=== PATIENT | male | born 1945 | race Caucasian/White ===

== ENCOUNTER → 2020-04-06 12:52 | Outpatient (BNVA) | payer MEDICARE, SELFPAY | PROVIDERS: PCP Internal Medicine; Visit Provider Internal Medicine Cardiovascular Disease | DX: R55 Syncope and collapse (principal) | CPT/HCPCS: 93005; 99212 ==

== ENCOUNTER 2020-07-31 09:26 | Outpatient (REF) | payer MEDICARE, SELFPAY ==
[2020-07-31 10:30] LABS: Hematocrit 44.5 % (42-52); Hemoglobin 14.6 g/dl (14.0-18.0); Mean Corpuscular HGB Conc 32.8 g/dl (31.0-36.0); Mean Corpuscular Hemoglobin 30.6 pg (27.0-33.0); Mean Corpuscular Volume 93.3 fL (80-98); Mean Platelet Volume 10.1 fL (9.4-12.4); Platelet Count 253 X10*3/uL (160-400); Red Blood Count 4.77 X10*6/uL (4.60-5.80); Red Cell Distribution Width 12.8 % (11.0-16.0); White Blood Count 5.1 X10*3/uL (4.8-10.8)
[2020-07-31 10:57] LABS: Alanine Aminotransferase 20 U/L (0-40); Albumin Level 4.2 g/dL (3.5-5.0); Alkaline Phosphatase 73 U/L (39-117); Anion Gap 12 (12-20); Aspartate Amino Transferase 17 U/L (5-37); Bilirubin Direct 0.2 mg/dL (0.0-0.5); Bilirubin Total 0.8 mg/dL (0.0-1.0); Blood Urea Nitrogen 24 mg/dL (9-16); Calcium 9.3 mg/dL (8.4-10.2); Carbon Dioxide 28 mmol/L (22-29); Chloride 108 mmol/L (96-108); Cholesterol 154 mg/dL; Estimated Glomerular Filt Rate > 60; Glucose Random 115 mg/dL (60-115); HDL Cholesterol 37 mg/dL; LDL Cholesterol Calculated 82 mg/dl; Potassium 4.4 mmol/L (3.3-5.1); Sodium 144 mmol/L (135-145); Total Protein 6.6 g/dL (6.5-8.0); Triglycerides 179 mg/dL
[2020-07-31 11:22] LABS: Glucose Urine UA NEG (NEG); Leukocyte Esterase Urine NEG (NEG); Nitrite Urine NEG (NEG); Urine Blood NEG (NEG); Urine Ketones NEG (NEG); Urine Protein NEG (NEG-TRACE)
[2020-07-31 11:24] LABS: Appearance Urine CLEAR; Color Urine YELLOW
== END 2020-07-31 09:27 | disposition home or self-care (01) ==
LOC: HO.LAB 09:26
PROVIDERS: PCP Internal Medicine; Visit Provider Internal Medicine
DX: E78.00 Pure hypercholesterolemia, unspecified (principal); I10 Essential (primary) hypertension
CPT/HCPCS: 36415; 80048; 80061; 80076; 81003; 85027; 86140

== ENCOUNTER 2020-10-31 09:48 | Outpatient (REF) | payer MEDICARE, SELFPAY ==
--- NOTE | ~2020-10-31 | XR_ITS ---
EXAMINATION: XR SHOULDER, RIGHT CLINICAL INFORMATION: R47.1 - Dysarthria and anarthria. Shoulder pain COMPARISON: Radiographs right shoulder 12/23/2018 TECHNIQUE: The right shoulder is imaged in 4 views. FINDINGS: There is no fracture, dislocation, or destructive process. Again, prominent narrowing of the glenohumeral joint is present with subchondral sclerosis and bulky spur from the inferior medial humeral head. There is no visible erosive change. Calcific tendinosis distal superior rotator cuff noted on prior study is not seen with certainty on the current exam. The acromioclavicular joint again demonstrates widening with stable mild elevation distal clavicle. Findings suggest old grade 1 sprain. The right lung apex shows no pneumothorax or pleural reaction. XR/XR shoulder RT min 2V IMPRESSION: 1. Degenerative arthropathy glenohumeral joint similar to prior study 12/23/2018. 2. Chronic grade 1 sprain acromioclavicular joint, stable.
== END 2020-10-31 09:49 | disposition home or self-care (01) ==
LOC: HO.XRAY 09:48
PROVIDERS: PCP Internal Medicine; Visit Provider Internal Medicine
DX: R47.1 Dysarthria and anarthria (principal); M75.00 Adhesive capsulitis of unspecified shoulder
CPT/HCPCS: 73030

== ENCOUNTER → 2020-11-07 09:21 | Outpatient (BNVA) | payer MEDICARE, SELFPAY | PROVIDERS: PCP Internal Medicine; Visit Provider Orthopaedic Surgery | DX: M19.011 Primary osteoarthritis, right shoulder (principal) | CPT/HCPCS: 20610; 99212; J1040 ==

== ENCOUNTER 2020-11-20 08:20 | Outpatient (REF) | payer MEDICARE, SELFPAY ==
[2020-11-20 09:38] LABS: Alanine Aminotransferase 45 U/L (0-40); Albumin Level 4.4 g/dL (3.5-5.0); Alkaline Phosphatase 64 U/L (39-117); Anion Gap 12 (12-20); Aspartate Amino Transferase 23 U/L (5-37); Blood Urea Nitrogen 23 mg/dL (9-16); Calcium 9.5 mg/dL (8.4-10.2); Carbon Dioxide 26 mmol/L (22-29); Chloride 108 mmol/L (96-108); Estimated Glomerular Filt Rate > 60; Glucose Fasting 94 mg/dL (60-99); Potassium 4.3 mmol/L (3.3-5.1); Sodium 142 mmol/L (135-145); Total Protein 6.7 g/dL (6.5-8.0)
== END 2020-11-20 08:21 | disposition home or self-care (01) ==
LOC: HO.LAB 08:20
PROVIDERS: PCP Internal Medicine; Visit Provider Nurse Practitioner Family
DX: Z13.1 Encounter for screening for diabetes mellitus (principal)
CPT/HCPCS: 36415; 80053

== ENCOUNTER 2021-02-05 12:06 | Outpatient (REF) | payer MEDICARE, SELFPAY ==
[2021-02-05 13:41] LABS: Alanine Aminotransferase 40 U/L (0-40); Albumin Level 4.5 g/dL (3.5-5.0); Alkaline Phosphatase 76 U/L (39-117); Anion Gap 14 (12-20); Aspartate Amino Transferase 31 U/L (5-37); Bilirubin Total 0.9 mg/dL (0.0-1.0); Blood Urea Nitrogen 20 mg/dL (9-16); Calcium 9.8 mg/dL (8.4-10.2); Carbon Dioxide 27 mmol/L (22-29); Chloride 105 mmol/L (96-108); Estimated Glomerular Filt Rate > 60; Glucose Random 91 mg/dL (60-115); Potassium 4.9 mmol/L (3.3-5.1); Sodium 141 mmol/L (135-145); Total Protein 7.2 g/dL (6.5-8.0)
[2021-02-07 08:53] LABS: HBS Num1 0.05 mIU/mL (0-7.99); HBc Num1 0.06 S/CO (0.00-0.79); Hepatitis B Core Antibody Nonreactive (Nonreactive); ~Hepatitis B Surface Antibody NONREACTIVE (Nonreactive)
[2021-02-07 09:10] LABS: HBsAGNum1 0.14 S/CO (0.00-0.99); Hepatitis B Surface Antigen Negative (Negative); ~HepC Num1 0.08 S/CO (0.00-0.79); ~Hepatitis C Antibody Nonreactive (Nonreactive)
== END 2021-02-05 12:07 | disposition home or self-care (01) ==
LOC: HO.LAB 12:06
PROVIDERS: PCP Internal Medicine; Visit Provider Internal Medicine
DX: R79.89 Other specified abnormal findings of blood chemistry (principal); R94.5 Abnormal results of liver function studies
CPT/HCPCS: 36415; 80053; 86704; 86706; 86803; 87340

== ENCOUNTER 2021-03-13 08:27 | Outpatient (REF) | payer MEDICARE, SELFPAY ==
--- NOTE | ~2021-03-13 | US_ITS ---
EXAMINATION: US ABDOMEN COMPLETE CLINICAL INFORMATION: Other specified abnormal findings of blood chemistry. COMPARISON: CT abdomen and pelvis without contrast dated 02/24/2010. TECHNIQUE: Real-time imaging of the abdominal viscera. FINDINGS: PANCREAS: Not well visualized due to bowel gas ABDOMINAL AORTA: Not well visualized due to bowel gas INFERIOR VENA CAVA: Visualized portions are normal. LIVER: Normal. The liver is normal in size. The liver contour is normal. Parenchymal echogenicity is normal. No focal hepatic lesion. There is no intrahepatic biliary duct dilatation seen. GALLBLADDER: Normal. The gallbladder is physiologically distended without evidence of stones, polyps, wall thickening or pericholecystic fluid. COMMON BILE DUCT: Normal in caliber measuring 0.4 cm in diameter. RIGHT KIDNEY: Normal. No hydronephrosis. No renal calculi or focal parenchymal lesions. The kidney measures 9.0 cm in maximum dimension. LEFT KIDNEY: Normal. No hydronephrosis. No renal calculi or focal parenchymal lesions. The kidney measures 11.3 cm in maximum dimension. SPLEEN: Normal. The spleen measures 9.6 cm in maximum dimension. FREE FLUID: None. US/US abdomen complete IMPRESSION: Limited visualization of the pancreas and aorta. Otherwise unremarkable exam.
== END 2021-03-13 08:28 | disposition home or self-care (01) ==
LOC: HO.US 08:27
PROVIDERS: PCP Internal Medicine; Visit Provider Internal Medicine
DX: R79.89 Other specified abnormal findings of blood chemistry (principal); R94.5 Abnormal results of liver function studies
CPT/HCPCS: 76700

== ENCOUNTER → 2021-04-09 12:42 | Outpatient (BNVA) | payer MEDICARE, SELFPAY | PROVIDERS: PCP Internal Medicine; Referring Provider Internal Medicine; Visit Provider Internal Medicine Cardiovascular Disease | DX: R55 Syncope and collapse (principal) | CPT/HCPCS: 93005; 99212 ==

== ENCOUNTER 2021-07-10 12:47 | Outpatient (RCR) | payer MEDICARE, SELFPAY ==
--- NOTE | 2021-07-23 11:36 | MHC.SP.ADU ---
Referring provider: Dr. Alex Reason for Referral: Dysarthria Type of Treatment: 67823 Evaluation Speech Sound Production WITH Language Date of Plan of Treatment: 07/10/21 Onset of Symptoms/Illness: 07/11/19 Date Treatment Started: 07/10/21 Medical Diagnosis: Dysarthria. Mr. Rosales reports no known HX CVA or neurological event. 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 Primary Speech Language Diagnosis: R47.1 Dysarthria Secondary Speech Language Diagnosis: R48.2 Apraxia History Eyad Rosales is a 75 year old man, [place] , who presented at the clinic today with a complaint of speech difficulty. Mr. Rosales reports that he had difficulty speaking clearly if saying more than two to three words in connected speech. He reports that he may stutter, have difficulty initiating words, and his speech is slurred/distorted and difficult for others to understand. He said speech has been this way for two years, and denies having had a stroke or stroke symptoms (other than slurred speech) when difficulty began. Mr. Rosales has not had neurological assessment or imaging studies to date for this difficulty, however has been referred to a neurologist by his new PCP. Medical History: Arthritis High Blood Pressure Other: Mr. Rosales reports he was diagnosed w/benign brain tumor 4-5 years ago. Medication List: Please refer to chart Recent Hospitalizations: No Respiratory Needs: Room Air Patient Orientation: Alert & Oriented x 4 Social History: Employment Status: Retired Highest level of education obtained: Completed High School Current Living Situation: Mr. 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 Rosales presents w/ moderate Dysarthria v. Adult Acquired Apraxia of Speech, characterized by speech sound distortions, omissions of sounds, syllables and words at sentence/connected speech level. Speech is moderately unintelligible to unfamiliar listener. Quality of Life: Good Patient Stated Goal of Speech-Language Therapy: Assess Speech and Language, make recommendations for intervention. Assessment Speech Production: Dysarthric Nonfluent Paucity of language Slurred Clinical Impression: Impaired Observations: Mr. Rosales presents with moderately impaired speech production characterized by distortion of speech sounds (including vowels) and omission of sounds, syllables and whole words at level of connected speech/sentence level. At single word level, Mr. Rosales is able to produce all [place] speech sounds w/o distortions, errors or production difficulty. Mr. Rosales additionally was noted stutter on sounds, characterized by occasional blocking when initiating words, and occasional repetition of initial sound in word. Mr. Rosales's Diodochokinetic rate demonstrated highly irregular rhythm, w/ decay/distortion of sounds on rapid repetition. When attempting to speak more than two to three words, Mr. Mancilla speech is moderately difficult to understand, particularly to an unfamiliar listener. Speech behavior noted is consistent with Adult Acquired Apraxia of Speech v. primary Dysarthria. Mr. Rosales noted that he participates in his [employer], and reports that he is able to sing and produce clear speech when singing. Informal Voice Assessment: Voice Loudness: Normal Voice Nasal Resonance: Normal Voice Oral Resonance: Normal Voice Phonatory-based Quality: Normal Voice Pitch: Normal Clinical Impression: Intact Clinicial Observations: On CAPE-V, vocal production is within normal limits, and speech production impaired as per above. Tests of Speech & Lang Adults: WAB-R Clinical Impression: Intact Observations: On screening of language skills using the Western Aphasia Battery R, Mr. Cornell presents with receptive and expressive language skills WNL, with no evidence of aphasia, auditory processing or auditory memory weakness. Impressions and Recommendations Summary: Impact on Daily Function/Activity Limitations:Mild-Moderate Daily Activities: Mild Interpersonal Interactions: Moderate Employment: Mild Community: Moderate Prognosis for Improvement: Good Comment: To date, Mr. Rosales has not received intervention for his speech needs. He made the observation that when he slows his speech and keeps his message to two to three words, he is best able to produce clear speech. As his utterance length or level of complexity of expression increases, the greater difficulty he has producing speech. Mr. Rosales may benefit from speech therapy focused on pacing and production strategies. Recommendation for Speech Therapy: Outpatient Speech Therapy Frequency/Duration: 1X 45 minute outpatient speech session weekly, w/ weekly home carryover activities assigned. Date Range for Service Requested: 1-3 months Time to Reassess: 3 months Detention Goals: Increase intelligibility of speech by providing strategies for speech production and articulation at the phrase, sentence and contextual speech level. Short Term Goals: Goal # : Eyad will accurately produce multisyllabic words in phrases by using a pacing strategy with 80% accuracy. Goal Status: Goal# : Eyad will produce target vowel and consonant sounds in words at the phrase and sentence level with 80% accuracy Goal Status: Goal # : Using a fluency strategy (e.g. easy onset, backward chaining), Eyad will produce fluent speech at the phrase level with 80% accuracy Goal Status: Goal # : In a structured activity, Eyad will produce a short verbal narrative with sentence length utterances of at least six morphemes in length with 80% accuracy. Goal Status: Recommended Referrals to be Discussed with Primary Care Provider: Mr. Cornell reports that he is schedule to be assessed by a Neurologist. Patient Education: Completed: Yes Patient/Caregiver Education: Described Results of Evaluation Patient expressed understanding of evaluation Comments/Barriers to Learning: Multi Line Claims Adjuster Clinican/Clinical Fellow: No Supervisory Statement: N/A Speech Language Pathologist: Valorie Sanders M.A., CCC-AMBULANCE ATTENDANT
== END 2022-01-08 13:15 | disposition still patient (30) ==
LOC: HO.SH 12:47
PROVIDERS: Visit Provider Internal Medicine
DX: R47.1 Dysarthria and anarthria (principal)
CPT/HCPCS: 92523

== ENCOUNTER 2021-10-01 08:48 | Outpatient (REF) | payer MEDICARE, SELFPAY ==
[2021-10-01 09:02] LABS: MANUAL DIFF FLAG NO
[2021-10-01 09:06] LABS: Basophils Percent Auto 0.5 % (0-2); Eosinophils Absolute Auto 0.2 X10*3/uL (0.0-0.4); Eosinophils Percent Auto 4.4 % (0-4); Hematocrit 44.6 % (42.0-52.0); Hemoglobin 14.9 g/dl (14.0-18.0); Imm Gran Abs Auto 0.02 X10*3/uL (0.00-0.03); Imm Gran Pct Auto 0.4 % (0.0-0.4); Lymphocytes Absolute Auto 1.4 X10*3/uL (1.2-4.9); Lymphocytes Percent Auto 25.1 % (20-40); Mean Corpuscular HGB Conc 33.4 g/dl (31.0-36.0); Mean Corpuscular Hemoglobin 30.7 pg (27.0-33.0); Mean Platelet Volume 9.5 fL (9.4-12.4); Monocytes Absolute Auto 0.6 X10*3/uL (0.1-1.2); Monocytes Percent Auto 11.3 % (2-11); Neutrophils Absolute Auto 3.2 x10*3/uL (2.0-8.3); Neutrophils Percent Auto 58.3 % (45-73); Platelet Count 236 X10*3/uL (160-400); Red Blood Count 4.85 X10*6/uL (4.60-5.80); Red Cell Distribution Width 12.6 % (11.0-16.0); White Blood Count 5.5 X10*3/uL (4.8-10.8)
[2021-10-01 09:46] LABS: Alanine Aminotransferase 38 U/L (0-40); Albumin Level 4.4 g/dL (3.5-5.0); Alkaline Phosphatase 67 U/L (39-117); Anion Gap 12 (12-20); Aspartate Amino Transferase 25 U/L (5-37); Blood Urea Nitrogen 21 mg/dL (9-16); Calcium 9.5 mg/dL (8.4-10.2); Carbon Dioxide 26 mmol/L (22-29); Chloride 106 mmol/L (96-108); Cholesterol 173 mg/dL; Estimated Glomerular Filt Rate > 60; Glucose Random 99 mg/dL (60-115); HDL Cholesterol 40 mg/dL; LDL Cholesterol Calculated 100 mg/dl; Potassium 4.4 mmol/L (3.3-5.1); Sodium 140 mmol/L (135-145); Total Protein 6.9 g/dL (6.5-8.0); Triglycerides 167 mg/dL
[2021-10-01 10:08] LABS: Free T4 (Free Thyroxine) 0.91 ng/dL (0.71-1.85)
[2021-10-01 11:39] LABS: Folate > 20.0 ng/mL (> or = 4.0); Vitamin B12 769 pg/mL (200-900)
== END 2021-10-01 08:49 | disposition home or self-care (01) ==
LOC: HO.LAB 08:48
PROVIDERS: PCP Internal Medicine; Visit Provider Internal Medicine
DX: E78.00 Pure hypercholesterolemia, unspecified (principal)
CPT/HCPCS: 36415; 80053; 80061; 82607; 82746; 84439; 84443; 85025

== ENCOUNTER 2021-10-10 11:14 | Outpatient (REF) | payer MEDICARE, SELFPAY ==
--- NOTE | ~2021-10-10 | MR_ITS ---
MR CERVICAL SPINE WITHOUT CONTRAST CLINICAL INFORMATION: Cervical region spinal stenosis. COMPARISON: Cervical spine MRI 03/13/2019. TECHNIQUE: MRI of the cervical spine was obtained using routine sequences without contrast. FINDINGS: Reversal the cervical lordosis. Mild anterior subluxation of C2 on C3 is unchanged as is mild retrosubluxation of C3 on C4, C5 on C6, and C6 on C7. There is also stable mild anterior subluxation of C7 on T1. Similar severe disc volume loss at C4-C5, C5-C6, and C6-C7. Modic type II endplate signal changes at C4-C5 and Modic type I signal changes at C3-C4. There is no additional bone marrow edema. There are no acute fractures. A partially imaged cyst within the left temporal lobe is stable when compared to the brain MRI dated 04/21/2018. Craniocervical junction is unremarkable. No definite cord signal abnormality accounting for artifact. The cervical arterial flow voids are maintained. C2-C3: Mild anterior subluxation. Advanced uncovertebral joint hypertrophy and hypertrophic facet arthropathy result in severe left and moderate right foraminal stenosis. Mild central canal stenosis. Findings unchanged. C3-C4: Disc osteophyte and ligamentum flavum thickening result in stable mild central canal stenosis. Advanced uncovertebral joint hypertrophy and hypertrophic facet arthropathy result in stable severe bilateral foraminal stenosis. C4-C5: Disc osteophyte and ligamentum flavum thickening result in mild to moderate central canal stenosis that is improved. Advanced uncovertebral joint hypertrophy and hypertrophic facet arthropathy result in stable severe right and moderate to severe left foraminal stenosis. C5-C6: Disc osteophyte and ligamentum flavum thickening result in stable moderate central canal stenosis and flattening of the cord. Advanced uncovertebral joint hypertrophy and hypertrophic facet arthropathy result in stable severe bilateral foraminal stenosis. C6-C7: Disc osteophyte and ligamentum flavum thickening result in stable mild central canal stenosis. Advanced uncovertebral joint hypertrophy and hypertrophic facet arthropathy result in stable severe bilateral foraminal stenosis. C7-T1: Mild anterior subluxation. No central canal stenosis and no significant foraminal stenosis. MR/MR cervical spine wo con IMPRESSION: - Reversal of the cervical lordosis, multilevel subluxation, and advanced multilevel cervical spondylosis. At C4-C5, slightly improved spondylitic changes result in decreased now mild to moderate central canal stenosis. Spondylitic changes result in similar moderate central canal stenosis and flattening of the cervical cord at C5-C6. Advanced spondylitic changes also result in stable varying degrees of moderate to severe foraminal stenosis throughout the cervical spine as described. - A partially imaged cyst within the left temporal lobe is stable when compared to the brain MRI dated 04/21/2018.
== END 2021-10-10 11:15 | disposition home or self-care (01) ==
LOC: HO.MRI 11:14
PROVIDERS: Visit Provider Internal Medicine
DX: M48.02 Spinal stenosis, cervical region (principal)
CPT/HCPCS: 72141

== ENCOUNTER → 2021-10-16 09:17 | Outpatient (BNVA) | payer MEDICARE, SELFPAY | PROVIDERS: PCP Internal Medicine; Visit Provider Physician Assistant | DX: M19.011 Primary osteoarthritis, right shoulder (principal) | CPT/HCPCS: 99212 ==

== ENCOUNTER → 2021-11-05 11:10 | Outpatient (BNVA) | payer MEDICARE, SELFPAY | PROVIDERS: PCP Internal Medicine; Visit Provider Orthopaedic Surgery | DX: M19.011 Primary osteoarthritis, right shoulder (principal); Z79.899 Other long term (current) drug therapy | CPT/HCPCS: 99212 ==

== ENCOUNTER → 2021-11-22 11:03 | Outpatient (BNVA) | payer MEDICARE, SELFPAY | PROVIDERS: PCP Internal Medicine; Visit Provider Orthopaedic Surgery | DX: M19.011 Primary osteoarthritis, right shoulder (principal) | CPT/HCPCS: 20610; 99212; J1100 ==

== ENCOUNTER 2022-02-07 13:00 | Outpatient (RCR) | payer MEDICARE, SELFPAY | END 2022-02-11 14:08 | disposition home or self-care (01) | LOC: HO.SH 13:00 | PROVIDERS: Visit Provider Internal Medicine | DX: R47.1 Dysarthria and anarthria (principal) | CPT/HCPCS: 92507 ==

== ENCOUNTER 2022-03-18 14:47 | Outpatient (REF) | payer MEDICARE, SELFPAY ==
--- NOTE | ~2022-03-18 | MR_ITS ---
EXAMINATION: MR BRAIN WITHOUT CONTRAST CLINICAL INFORMATION: Dysarthria following cerebral infarction. COMPARISON: Brain MRI 04/21/2018. TECHNIQUE: Multiplanar, multisequence imaging of the brain was performed without intravenous contrast. FINDINGS: There is no acute infarction, hemorrhage, mass, or extra-axial fluid collection. There is redemonstration of left temporal horn enlargement which is unchanged compared with prior exams with stable mild gliosis along the anterior and lateral margin. A few minimal nonspecific foci of T2/FLAIR hyperintensity are seen within the cerebral white matter. Disproportionate diffuse cerebellar hemisphere and vermian volume loss is again noted without change. The major arterial flow voids are preserved at the skull base. There are bilateral lens replacements. The extracranial structures are within normal limits. MR/MR head/brain wo con IMPRESSION: No acute intracranial abnormality. No infarct, mass, or extra-axial fluid collection. Stable enlargement of the left temporal horn. Redemonstration of disproportionate cerebellar volume loss.
== END 2022-03-18 14:48 | disposition home or self-care (01) ==
LOC: HO.MRI 14:47
PROVIDERS: Visit Provider Internal Medicine
DX: I69.322 Dysarthria following cerebral infarction (principal); R47.1 Dysarthria and anarthria
CPT/HCPCS: 70551

== ENCOUNTER → 2022-04-10 12:42 | Outpatient (BNVA) | payer MEDICARE, SELFPAY | PROVIDERS: PCP Internal Medicine; Referring Provider Internal Medicine; Visit Provider Internal Medicine Cardiovascular Disease | DX: R55 Syncope and collapse (principal) | CPT/HCPCS: 93005; 99212 ==

== ENCOUNTER 2022-05-27 08:26 | Outpatient (REF) | payer MEDICARE, SELFPAY ==
[2022-05-27 08:43] LABS: MANUAL DIFF FLAG NO
[2022-05-27 09:14] LABS: Basophils Percent Auto 0.6 % (0-2); Eosinophils Absolute Auto 0.3 X10*3/uL (0.0-0.4); Eosinophils Percent Auto 4.7 % (0-4); Hematocrit 45.8 % (42.0-52.0); Hemoglobin 15.3 g/dl (14.0-18.0); Imm Gran Abs Auto 0.02 X10*3/uL (0.00-0.03); Imm Gran Pct Auto 0.4 % (0.0-0.4); Lymphocytes Absolute Auto 1.6 X10*3/uL (1.2-4.9); Lymphocytes Percent Auto 29.5 % (20-40); Mean Corpuscular HGB Conc 33.4 g/dl (31.0-36.0); Mean Corpuscular Volume 92.9 fL (80.0-98.0); Mean Platelet Volume 10.1 fL (9.4-12.4); Monocytes Absolute Auto 0.6 X10*3/uL (0.1-1.2); Monocytes Percent Auto 10.7 % (2-11); Neutrophils Absolute Auto 2.9 x10*3/uL (2.0-8.3); Neutrophils Percent Auto 54.1 % (45-73); Platelet Count 254 X10*3/uL (160-400); Red Blood Count 4.93 X10*6/uL (4.60-5.80); Red Cell Distribution Width 12.8 % (11.0-16.0); White Blood Count 5.3 X10*3/uL (4.8-10.8)
[2022-05-27 09:55] LABS: Alanine Aminotransferase 36 U/L (0-40); Albumin Level 4.3 g/dL (3.5-5.0); Alkaline Phosphatase 70 U/L (39-117); Anion Gap 13 (12-20); Aspartate Amino Transferase 27 U/L (5-37); Bilirubin Total 1.4 mg/dL (0.0-1.0); Blood Urea Nitrogen 22 mg/dL (9-16); Calcium 9.3 mg/dL (8.4-10.2); Carbon Dioxide 28 mmol/L (22-29); Chloride 107 mmol/L (96-108); Cholesterol 172 mg/dL; Estimated Glomerular Filt Rate > 60; Glucose Random 93 mg/dL (60-115); HDL Cholesterol 35 mg/dL; LDL Cholesterol Calculated 111 mg/dl; Potassium 4.9 mmol/L (3.3-5.1); Sodium 143 mmol/L (135-145); Total Protein 6.6 g/dL (6.5-8.0); Triglycerides 132 mg/dL
[2022-05-27 10:25] LABS: Folate 17.7 ng/mL (> or = 4.0); Free T4 (Free Thyroxine) 0.91 ng/dL (0.71-1.85); Thyroid Stimulating Hormone 3.05 uIU/mL (0.32-4.0); Vitamin B12 972 pg/mL (200-900)
== END 2022-05-27 08:27 | disposition home or self-care (01) ==
LOC: HO.LAB 08:26
PROVIDERS: PCP Internal Medicine; Visit Provider Internal Medicine
DX: E78.00 Pure hypercholesterolemia, unspecified (principal)
CPT/HCPCS: 36415; 80053; 80061; 82607; 82746; 84439; 84443; 85025

== ENCOUNTER → 2022-06-10 12:34 | Outpatient (BNVA) | payer MEDICARE, SELFPAY | PROVIDERS: PCP Internal Medicine; Visit Provider Orthopaedic Surgery | DX: M19.011 Primary osteoarthritis, right shoulder (principal) | CPT/HCPCS: 99212 ==

== ENCOUNTER 2022-06-27 14:15 | Outpatient (REF) | payer MEDICARE, SELFPAY ==
--- NOTE | ~2022-06-27 | MR_ITS ---
EXAMINATION: MR SHOULDER WITHOUT CONTRAST, RIGHT CLINICAL INFORMATION: Preprocedure examination. Patient reports pain, decreased range of motion. Patient reports no prior right shoulder surgery. COMPARISON: X-ray 10/31/2020. No prior MRI images available for comparison. TECHNIQUE: MRI of the shoulder without contrast was performed on a high-field scanner. FINDINGS: ROTATOR CUFF: Moderate supraspinatus tendinosis. Moderate infraspinatus tendinosis. There is a linear intrasubstance tear in the distal anterior fibers infraspinatus measuring 0.9 x 0.8 cm (AP x ML). Teres minor is intact. Moderate subscapularis tendinosis with 2.8 cm (length) partial-thickness articular aspect tear. Severe infraspinatus muscle atrophy or fatty infiltration. BICEPS: Proximal biceps tendinosis and partial tearing. CORACOACROMIAL ARCH: The undersurface of the acromion is curved with lateral downsloping.. There is widening of the acromioclavicular distance, with superior positioning of the distal clavicle with respect to the acromium, suggestive of AC joint sprain injury. This correlates with the prior x-ray findings. LABRUM/CAPSULE: Posterior labral degeneration and tear. Anteroinferior labral degenerative tearing, small caliber. Inferior labral degeneration, small caliber and attrition. Intact inferior capsule. GLENOHUMERAL JOINT/MARROW: Severe glenohumeral joint arthritis. Marked joint space loss, broad area of high-grade/full-thickness cartilage loss, large osteophytes, subchondral cysts and edema, edema in the humeral head and neck. Small-moderate joint effusion. Low signal foci in the joint space, from synovitis/loose bodies.. MR/MR shoulder RT wo con IMPRESSION: 1. Moderate supraspinatus tendinosis. Moderate infraspinatus tendinosis, with a 0.9 x 0.8 cm linear intrasubstance tear. 2. Moderate subscapularis tendinosis with 2.8 cm partial-thickness articular aspect tear. 3. Proximal biceps tendinosis and partial tearing. 4. Posterior labral degeneration and tear. Anteroinferior labral degenerative tearing. Inferior labral degeneration, small caliber and attrition. 5. Severe glenohumeral joint arthritis. Small-moderate effusion, with synovitis/loose bodies. 6. Widening of the acromioclavicular distance, with superior positioning of the distal clavicle with respect to the acromium, suggestive of a AC joint sprain injury.
== END 2022-06-27 14:16 | disposition home or self-care (01) ==
LOC: HO.MRI 14:15
PROVIDERS: PCP Internal Medicine; Visit Provider Orthopaedic Surgery
DX: Z01.818 Encounter for other preprocedural examination (principal)
CPT/HCPCS: 73221

== ENCOUNTER → 2022-07-10 09:45 | Outpatient (BNVA) | payer MEDICARE, SELFPAY | PROVIDERS: PCP Internal Medicine; Visit Provider Psychiatry & Neurology Neurology | DX: R47.1 Dysarthria and anarthria (principal); G31.9 Degenerative disease of nervous system, unspecified | CPT/HCPCS: 99202 ==

== ENCOUNTER 2022-08-07 13:58 | Outpatient (REF) | payer MEDICARE, SELFPAY ==
--- NOTE | ~2022-08-07 | CT_ITS ---
EXAMINATION: CT SHOULDER WITHOUT CONTRAST, RIGHT CLINICAL INFORMATION: Encounter for other preprocedural examination. Right shoulder pain. Decreased range of motion. COMPARISON: MRI dated 06/27/2022. TECHNIQUE: Axial multidetector volumetric imaging was obtained through the right shoulder without intravenous contrast material. Multiplanar reformatted images were submitted. This CT examination was performed using dose optimization techniques as appropriate, variously including the following: *Automated exposure control *Adjustment of mA and/or kV according to patient size (this includes techniques or standardized protocols for targeted exams where dose is matched to indication/reason for exam; i.e. extremities or head) *Use of iterative reconstruction technique DLP: 279 mGy-cm. FINDINGS: Severe degenerative arthritis in the glenohumeral joint characterized by severe joint space narrowing, large marginal osteophytes, articular sclerosis, subchondral cystic change, and articular surface remodeling. There is minimal glenoid retroversion. A 1.8 cm loose body is present in the posterosuperior aspect of the glenohumeral joint. Glenoid retroversion: 9 degrees. Glenoid vault depth: 27 mm. Postsurgical changes of prior distal clavicular resection are apparent at the AC joint. Status post subacromial decompression. Much of the acromion is absent. A 1.4 cm subcutaneous cystic focus at the lateral aspect of the acromion likely corresponds to a ganglion cyst or sebaceous cyst. The included portions of the ribs and chest wall are intact without fractures or lesions. No significant pulmonary abnormalities in the imaged portion of the lung. No axillary adenopathy. There is a small glenohumeral joint effusion. There is [id number] atrophy of the infraspinatus muscle and more mild supraspinatus muscle atrophy. CT/CT shoulder RT wo IV con IMPRESSION: Severe glenohumeral osteoarthritis with minimal glenoid retroversion. A 1.8 cm loose body is present in the posterosuperior aspect of the glenohumeral joint.
== END 2022-08-07 13:59 | disposition home or self-care (01) ==
LOC: HO.CT 13:58
PROVIDERS: Visit Provider Orthopaedic Surgery
DX: Z01.818 Encounter for other preprocedural examination (principal); M25.511 Pain in right shoulder
CPT/HCPCS: 73200

== ENCOUNTER → 2022-08-08 13:47 | Outpatient (BNVA) | payer MEDICARE, SELFPAY | PROVIDERS: PCP Internal Medicine; Visit Provider Physician Assistant ==

== ENCOUNTER 2022-08-13 10:36 | Inpatient (IN) | payer MEDICARE, SELFPAY ==
--- NOTE | 2022-07-24 12:33 | ECG_ITS ---
Test Reason : z01.818 Blood Pressure : / mmHG Vent. Rate : 059 BPM Atrial Rate : 059 BPM P-R Int : 196 ms QRS Dur : 074 ms QT Int : 414 ms P-R-T Axes : 026 -44 -22 degrees QTc Int : 409 ms Sinus bradycardia Left axis deviation Abnormal ECG When compared with ECG of 31-OCT-2017 15:42, Premature ventricular complexes are no longer Present Incomplete right bundle branch block is no longer Present Referred By: Fany Garcia Electronically Signed By:CAROLEE JUNIOR MD
[2022-07-24 13:33] LABS: Hematocrit 47.4 % (42.0-52.0); Mean Corpuscular HGB Conc 33.8 g/dl (31.0-36.0); Mean Corpuscular Hemoglobin 30.7 pg (27.0-33.0); Mean Platelet Volume 10.1 fL (9.4-12.4); Platelet Count 284 X10*3/uL (160-400); Red Blood Count 5.21 X10*6/uL (4.60-5.80); Red Cell Distribution Width 12.4 % (11.0-16.0); White Blood Count 6.9 X10*3/uL (4.8-10.8)
[2022-07-24 13:38] LABS: INTERNATIONAL NORM RATIO 0.9 (0.9-1.1); Prothrombin Time 10.6 SEC (10.0-13.1)
[2022-07-24 14:51] LABS: Anion Gap 14 (12-20); Blood Urea Nitrogen 18 mg/dL (9-16); Calcium 9.8 mg/dL (8.4-10.2); Carbon Dioxide 27 mmol/L (22-29); Chloride 105 mmol/L (96-108); Estimated Glomerular Filt Rate > 60; Glucose Random 83 mg/dL (60-115); Potassium 4.5 mmol/L (3.3-5.1); Sodium 142 mmol/L (135-145); TSH reflex Free T4 3.84 uIU/mL (0.32-4.0)
[2022-08-06 12:21] VITALS: BP 160/74; PULSE 61; RESP 18; O2SAT 97; BMI 25.8
--- NOTE | 2022-08-06 12:45 | P.CONAN_ITS ---
Documented by User: Leslie Carrasco NP 08/06/22 13:04 HPI - Anesthesia Eval Consult details Narrative: 76yo M for Right Shoulder Total Arthroplasty PCP cleared Follows neuro for Dysarthria and Anarthria - last visit 06/2022 - progression of symptoms but no acute findings on MRI. Trial of carba-levo. [facility] Active Problems Active Problems: All Active Problems (Updated 08/06/22 @ 12:14 by Melonie Ford RN) Syncope (Acute) Primary osteoarthritis, right shoulder (Acute) Adult general medical exam (Acute) Diastasis of rectus abdominis (Acute) Retinal detachment (Acute) Pre-op evaluation (Acute) Medicare annual wellness visit, initial (Acute) Dysarthria (Acute) Insomnia (Acute) Cervical spinal stenosis (Acute) Shoulder pain, right (Acute) GERD (gastroesophageal reflux disease) (Acute) Osteoarthritis of right shoulder (Acute) Right carpal tunnel syndrome (Acute) Preoperative clearance (Acute) Cerebellar atrophy (Acute) Hypercholesterolemia (Acute) Benign essential HTN (Acute) Benign prostate hyperplasia (Acute) Myelopathy (Acute) Past Medical History Medical History Arthritis Benign essential HTN Benign prostate hyperplasia Cancer Cerebellar atrophy GERD (gastroesophageal reflux disease) Habitual snoring Hypercholesterolemia LFT elevation Myelopathy Pre-op evaluation Family History Family History Father No problems noted. Mother No problems noted. Family history of problems with anesthesia: No Surgical History Surgical History H/O eye surgery H/O medial meniscus repair of left knee History of colonoscopy History of knee replacement History of Problems with Anesthesia: No Social History Social History Housing: House Housing Other:: mobile home Are you a primary lawn care technician to a significant other at home: No Do you presently have visiting nurse or other home services: No Alcohol intake: never Patient Tobacco Use Status: Never used Tobacco e-Cigarette/Vaping Use: Never Used Second Hand Smoke Exposure: No Use of substances other than those prescribed or required for medical reasons: No Have you been hit, kicked, punched, or otherwise hurt by someone within the past year? 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 No CP/SOB with daily 3 miles walk Meds Allergies Allergy/AdvReac Type Severity Reaction Status Date / Time No Known Allergies Allergy Mild NONE Verified 08/13/22 10:41 Home Medications Medication Instructions Recorded Confirmed Last Taken Type omega 8-yua-vhx-fish oil 100 cap PO 07/03/21 08/08/22 08/06/22 History mg-160 mg-1,000 mg capsule (Fish Oil) Exam Exam Date and Time: August 06, 2022 1245 Height,Weight and Vital Signs: Height 5 ft 7 in Weight 74.843 kg Last Vital Signs Pulse 61 08/06/22 12:21 Resp 18 08/06/22 12:21 BP 160/74 H 08/06/22 12:21 Pulse Ox 97 08/06/22 12:21 O2 Del Method Room Air 08/06/22 12:21 Pertinent Lab Results Pertinent Lab Results: Laboratory Tests 07/24/22 07/24/22 07/24/22 12:42 12:42 12:42 WBC 6.9 RBC 5.21 Hgb 16.0 Hct 47.4 MCV 91.0 MCH 30.7 MCHC 33.8 RDW 12.4 Plt Count 284 MPV 10.1 Absolute Nucleated RBC 0.000 Nucleated RBC % (auto) 0.0 PT 10.6 INR 0.9 Sodium 142 Potassium 4.5 Chloride 105 Carbon Dioxide 27 Anion Gap 14 BUN 18 H Creatinine 1.07 Estim Creat Clear Calc TNP Estimated GFR > 60 Random Glucose 83 Calcium 9.8 TSH 3.84 Narrative Narrative: EKG 07/2022 Vent. Rate : 059 BPM ? ? Atrial Rate : 059 BPM ?? P-R Int : 196 ms? QRS Dur : 074 ms ? ? QT Int : 414 ms ? ? ? P-R-T Axes : 026 -44 -22 degrees ?? QTc Int : 409 ms ? Sinus bradycardia Left axis deviation Abnormal ECG When compared with ECG of 31-OCT-2017 15:42, Premature ventricular complexes are no longer Present Incomplete right bundle branch block is no longer Present MR head/brain wo con 2021 IMPRESSION: No acute intracranial abnormality. No infarct, mass, or extra-axial fluid collection. Stable enlargement of the left temporal horn. Redemonstration of disproportionate cerebellar volume loss. Airway Mallampati Class: II TM Dist: >3cm Neck ROM: Limited (OA/stenosis, no surgery) Loose/Missing/Broken Teeth: Yes (Upper front permanent bridge, molars missing) Heart: RRR Lungs: CTAB Assessment and Plan Assessment Anesthesia Assessment: Anesthesia Plan Discussed and PAT Visit Final Anesthetic Review Family History of Problems with Anesthesia: No History of Problems with Anesthesia: No Documented by User: Monroe Fletcher MD 08/13/22 17:38 [facility] Past Medical History Medical History Arthritis Benign essential HTN Benign prostate hyperplasia Cancer Cerebellar atrophy GERD (gastroesophageal reflux disease) Habitual snoring Hypercholesterolemia LFT elevation Myelopathy Pre-op evaluation Functional capacity: independent ambulation Family History Family History Father No problems noted. Mother No problems noted. Surgical History Surgical History H/O eye surgery H/O medial meniscus repair of left knee History of colonoscopy History of knee replacement Social History Social History Housing: House Housing Other:: mobile home Are you a primary lawn care technician to a significant other at home: No Do you presently have visiting nurse or other home services: No Alcohol intake: never Patient Tobacco Use Status: Never used Tobacco e-Cigarette/Vaping Use: Never Used Second Hand Smoke Exposure: No Use of substances other than those prescribed or required for medical reasons: No Have you been hit, kicked, punched, or otherwise hurt by someone within the past year? 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 Cognitive needs: No Hearing needs: No Vision needs: Yes Meds Allergies Allergy/AdvReac Type Severity Reaction Status Date / Time No Known Allergies Allergy Mild NONE Verified 08/13/22 10:41 Home Medications Medication Instructions Recorded Confirmed Last Taken Type omega 0-kwi-fhk-fish oil 100 cap PO 07/03/21 08/08/22 08/06/22 History mg-160 mg-1,000 mg capsule (Fish Oil) Assessment and Plan Assessment Anesthesia Assessment: Chart Reviewed Final Anesthetic Review NPO: Yes ASA Class: III Final Preanesthetic Review: Meds/Allgs Chart Reviewed, Consent Obtained/Reviewed and Anes Risks/Benef Reviewed Patient Risk: Intermediate Procedure Risk: Intermediate Anesthetic Plan Anesthetic Plan: GA and Regional Block Disposition: Standard PACU and Inp. Admit - Standard Bed
[2022-08-06 16:02] LABS: MRSA Nasal PCR NEGATIVE (Negative); SA Nasal PCR NEGATIVE (Negative)
[2022-08-13] VITALS (13 sets, daily range): BP systolic 117–163; BP diastolic 62–80; PULSE 51–88; RESP 15–20; TEMP 36.1–36.8; O2SAT 92–98; BMI 25.3
--- NOTE | ~2022-08-13 | XR_ITS ---
EXAMINATION: XR SHOULDER, RIGHT CLINICAL INFORMATION: Postop COMPARISON: Previous CT of the right shoulder july 2022 x-ray October 2020 and MR June 2022 TECHNIQUE: Two views of the right shoulder. FINDINGS: There is a new right shoulder replacement in satisfactory position. No fracture or dislocation. Postoperative changes to the soft tissues. Arthritis at the acromioclavicular joint. XR/XR shoulder RT min 2V IMPRESSION: Satisfactory appearance of right shoulder replacement.
--- NOTE | 2022-08-13 09:39 | MHC.SHP ---
Pre-Procedural Eval Section A Date of Service: 08/13/22 The patient is an INPATIENT: No Changes since office visit: No Cold of Flu in the past 2 weeks, No New Medical Problems, No Changes in Medication and No Patient answered all questions The History & Physical has been completed within 30 days and I have reviewed it.: Yes Section B Chief Complaint: Primary osteoarthritis, right shoulder Allergies: Allergies Allergy/AdvReac Type Severity Reaction Status Date / Time No Known Allergies Allergy Mild NONE Verified 08/08/22 13:54 Plan I have reviewed the history and physical and performed a pertinent physical examination on my patient. No changes have occurred unless specified. Time Spent With Patient Time: Total time managing care of this patient today ____ minutes.
--- OUTSIDE RECORDS SUMMARY | 2022-08-13 10:40 | XMS_ITS | Continuity of Care Document ---
Author Name Unknown Organization [facility] Address [address] [place], [place] [address]rhonda fuentes, [address] [place] [address]- Care Team Providers Care Trombone Slide Assembler Name Role Phone Po Shaila LOVE Primary Care Physician Encounter [facility] [place] Date(s): 02/18/22 - 03/20/[address], [address] [place] [address]- Attending Physician: Michelle Vigil Admitting Physician: Admtr, Ar8 Referring Physician: Admtr, Ar8 Allergies, Adverse Reactions, Alerts No Known Allergies Medications finasteride 5 mg oral tablet 1 tablet = 5 mg, By Mouth, Daily, # 30 tablet, 0 Refills, Maintenance, 01/08/22 10:27:00 EDT, Tablet, Partial fill upon patient request if the prescription is for a schedule II opioid drug. Start Date: 01/08/22 Status: Ordered Fish Oil By Mouth, 0 Refills, Maintenance, 01/08/22 10:28:00 EDT, Partial fill upon patient request if the prescription is for a schedule II opioid drug. Start Date: 01/08/22 Status: Ordered lisinopril 20 mg oral tablet 20 mg, 1, tablet, By Mouth, Daily, # 30 tablet, Refills 0, Maintenance, 01/08/22 10:27:00 EDT, Partial fill upon patient request if the prescription is for a schedule II opioid drug. Start Date: 01/08/22 Status: Ordered Multivitamin Daily, 0 Refills, Maintenance, 01/08/22 10:28:00 EDT, Partial fill upon patient request if the prescription is for a schedule II opioid drug. Start Date: 01/08/22 Status: Ordered Neuriva Brain performance Plus Therapeutic Multiple Vitamins oral capsule By Mouth, Daily, 0 Refills, Maintenance, 01/08/22 10:28:00 EDT, Partial fill upon patient request if the prescription is for a schedule II opioid drug. Start Date: 01/08/22 Status: Ordered omeprazole 20 mg oral delayed release tablet 1 tablet = 20 mg, By Mouth, Daily, # 30 tablet, 0 Refills, Maintenance, 01/08/22 10:28:00 EDT, CR Tablet, Partial fill upon patient request if the prescription is for a schedule II opioid drug. Start Date: 01/08/22 Status: Ordered pravastatin 20 mg oral tablet 20 mg, 1, tablet, By Mouth, Daily, # 30 tablet, Refills 0, Maintenance, 01/08/22 10:27:00 EDT, Partial fill upon patient request if the prescription is for a schedule II opioid drug. Start Date: 01/08/22 Status: Ordered Patient Care team information Care Team Personnel Name: Shaila Alex MD Position: Reference Physician Member Role: PCP Address: Address: [address] [place] [address]- Care Team Related Persons Name: ROBIN CARRANZA Address: [address] [place] [address]
--- OUTSIDE RECORDS SUMMARY | 2022-08-13 10:40 | XMS_ITS | Continuity of Care Document ---
Author Name Unknown Organization [facility] ter Address [address] [place] [address]- Care Team Providers Care Nurse'S Companion Name Role Phone Charisse LOVE, Don Ramírez Primary Care Physic melia Encounter [facility] Date(s): 01/31/20 - 01/31/[address] [address] Discharge Disposition: A-D/C Home Attending Physician: Marie Xiong MD Admitting Physician: Marie Xiong MD Referring Physician: Marie Xiong MD Allergies, Adverse Reactions, Alerts Substance Reaction Severity Status NKA Active Vital Signs Most recent to oldest [Reference Range]: 1 2 3 Weight 73.6 kg (01/31/20 2:31 PM) Oxygen Saturation [94-100 %] 99 % (01/31/20 5:50 PM) 100 % (01/31/20 4:35 PM) 99 % (01/31/20 4:30 PM) Pulse Rate [55-90 bpm] 92 bpm *H* (01/31/20 2:31 PM) Blood Pressure [90-138/55-84 mm Hg] 161/73mm Hg *H* (01/31/20 5:50 PM) 113/56mm Hg (01/31/20 4:35 PM) 158/79mm Hg *H* (01/31/20 4:30 PM) Respiratory Rate [16-30 br/min] 18 br/min (01/31/20 5:50 PM) 16 br/min (01/31/20 4:35 PM) 16 br/min (01/31/20 4:30 PM) Temperature [96.8-100.4 DegF] 97 DegF (01/31/20 5:50 PM) 98.6 DegF (01/31/20 2:31 PM) Liters per Minute 2 L/min (01/31/20 4:35 PM) 2 L/min (01/31/20 4:30 PM) 2 L/min (01/31/20 4:25 PM) Mode of Delivery (Oxygen) Room air (01/31/20 6:30 PM) Room air (01/31/20 5:50 PM) Aerosol mask (01/31/20 4:35 PM) Blood pressure sites Arm, right (01/31/20 5:50 PM) Leg, right (01/31/20 2:31 PM) Temperature Route Temporal (01/31/20 5:50 PM) Temporal (01/31/20 2:31 PM) Dry Weight 73.6 kg (01/31/20 2:31 PM) Weight Obtained Via Standing scale (01/31/20 2:31 PM) Dry Weight Obtained Via Standing scale (01/31/20 2:31 PM)
--- OUTSIDE RECORDS SUMMARY | 2022-08-13 10:40 | XMS_ITS | Continuity of Care Document ---
Author Name Unknown Organization [facility] ter Address [address] [place] [address]- Care Team Providers Care Telephone Advice Nurse Name Role Phone Shaila Alex MD Primary Care Physician Encounter [facility] [place] Date(s): 02/27/21 - 02/27/[address] [address] Discharge Disposition: A-D/C Home Attending Physician: Marie Xiong MD Admitting Physician: Marie Xiong MD Referring Physician: Marie Xiong MD Allergies, Adverse Reactions, Alerts Substance Reaction Severity Status NKA Active Vital Signs Most recent to oldest [Reference Range]: 1 2 3 Height 171 cm (02/27/21 11:15 AM) Weight 72 kg (02/27/21 11:15 AM) Oxygen Saturation [94-100 %] 99 % (02/27/21 3:15 PM) 100 % (02/27/21 3:00 PM) 100 % (02/27/21 2:45 PM) Pulse Rate [55-90 bpm] 88 bpm (02/27/21 11:15 AM) Body Mass Index [18.5-24.99] 24.62 (02/27/21 11:15 AM) Blood Pressure [90-138/55-84 mm Hg] 177/80mm Hg *H* (02/27/21 3:15 PM) 177/80mm Hg *H* (02/27/21 2:45 PM) 152/78mm Hg *H* (02/27/21 1:35 PM) Respiratory Rate [16-30 br/min] 33 br/min *H* (02/27/21 3:15 PM) 20 br/min (02/27/21 3:00 PM) 28 br/min (02/27/21 2:45 PM) Temperature [96.8-100.4 DegF] 98.5 DegF (02/27/21 2:45 PM) 97.8 DegF (02/27/21 11:15 AM) Liters per Minute 2 L/min (02/27/21 1:35 PM) 2 L/min (02/27/21 1:30 PM) Mode of Delivery (Oxygen) Room air (02/27/21 3:15 PM) Room air (02/27/21 3:00 PM) Room air (02/27/21 2:45 PM) Blood pressure sites Arm, right (02/27/21 11:15 AM) Temperature Route Temporal (02/27/21 2:45 PM) Temporal (02/27/21 11:15 AM) Dry Weight 72 kg (02/27/21 11:15 AM) Weight Obtained Via Standing scale (02/27/21 11:15 AM) Dry Weight Obtained Via Standing scale (02/27/21 11:15 AM)
--- OUTSIDE RECORDS SUMMARY | 2022-08-13 10:40 | XMS_ITS | Continuity of Care Document ---
Author Name Unknown Organization [facility] Address [address] [place], [place] [address]rhonda gina, [address] [place] [address]- Care Team Providers Care Mid Level Game Designer Name Role Phone Po Shaila LOVE Primary Care Physician [phone] Encounter [facility] [place] Date(s): 12/24/21 - 01/23/[address], [address] [place] [address]- Allergies, Adverse Reactions, Alerts No Known Allergies [...] 01/08/22 Status: Ordered Patient Care team information Personnel Name: Shaila Alex MD Address: Address: [address] [place] [id number]
--- OUTSIDE RECORDS SUMMARY | 2022-08-13 10:40 | XMS_ITS | Continuity of Care Document ---
Author Name Unknown Organization [facility] Address [address] [place], [place] [address]rhonda fuentes, [address] [place] [address]- Care Team Providers Care Real Time Trader Name Role Phone Shaial Alex MD Primary Care Physician [place] [facility] [place] - 01/15/[address], [address] [place] [address]- Attending Physician: Alexander Samuels MD Referring Physician: Nicko Simmons Jr, DO Allergies, Adverse Reactions, Alerts No Known Allergies [...] opioid drug. Start Date: 01/08/22 Status: Ordered Vital Signs Most recent to oldest [Reference Range]: 1 Height 171 cm (01/08/22 10:25 AM) Weight 72 kg (01/08/22 10:25 AM) Body Mass Index [18.5-24.99 kg/m2] 24.62 kg/m2 (01/08/22 10:25 AM) Patient Care team information Personnel Name: Shaila Alex MD Address: Address: [address] [place] [id number]
--- OUTSIDE RECORDS SUMMARY | 2022-08-13 10:40 | XMS_ITS | Continuity of Care Document ---
Author Name Unknown Organization [facility] Address [address] [place] [address]- Care Team Providers Care Reverse Logistics Analyst Name Role Phone Po Shaila LOVE Primary Care Physician Encounter [facility] [place] Date(s): 01/18/22 - 02/17/[address] [address]- Attending Physician: Michelle Vigil Admitting Physician: Michelle Vigil Referring Physician: Admtr ArDanny Allergies, Adverse Reactions, Alerts No Known Allergies [...] Reference Physician Member Role: PCP Address: Address: [address] [place] [address]- Care Team Related Persons Name: ROBIN CARRANZA Address: [address] [place] [address]
--- OUTSIDE RECORDS SUMMARY | 2022-08-13 10:40 | XMS_ITS | Continuity of Care Document ---
Author Name Unknown Organization [facility] Address [address] [place], [place] [address]rhonda fuentes, [address] [place] [address]- Care Team Providers Care Captain Airline Pilot Name Role Phone Shaila Alex MD Primary Care Physician [phone] Encounter [facility] Date(s): 02/18/22 - 02/25/[address], [address] [place] [address]- Attending Physician: Alexander Samuels MD Referring Physician: Shaila Alex MD Allergies, Adverse Reactions, Alerts No Known Allergies [...] oldest [Reference Range]: 1 Height 171 cm (02/18/22 1:54 PM) Weight 72.0 kg (02/18/22 1:54 PM) Body Mass Index [18.5-24.99 kg/m2] 24.62 kg/m2 (02/18/22 1:54 PM) Patient Care team information Care Team Personnel Name: Shaila Alex MD Position: Reference Physician Member Role: PCP Address: Address: [address] [place] [address]- Care Team Related Persons Name: ROBIN CRARANZA Address: home [address] [place] [address] [place] [address]
--- NOTE | 2022-08-13 10:43 | PHA.MEDREC ---
Pharmacy Consult ? Medication Reconciliation Pharmacy has reviewed the medication reconciliation completed by nursing.
[2022-08-13] MEDS: Lactated Ringers 1,000 ML 100 ML IVCONT ×2 (11:32→21:10)
[2022-08-13] MEDS: Acetaminophen 325 MG TABLET 650 MG PO (15:32)
[2022-08-13] MEDS: oxyCODONE HCl Immed Release 5 MG TABLET PO (15:33)
--- NOTE | 2022-08-13 16:19 | P.BOP_ITS ---
Brief Operative Note Date of Service: 08/13/22 Pre-op diagnosis: Right shoulder OA Post-op diagnosis: same Procedure: Right shoulder arthroplasty Implants: Tournier Simplicity 2 Pegged glenoid Surgeon: Zurdo Mendez MD Anesthesia: GETA and regional Was an Machine Load Clerk used for this Procedure?: Yes Machine Load Clerk: Davina Hoffman Estimated blood loss (mL): 150 IV fluids (mL): 800 Pathology: other Condition: stable Disposition: PACU
[2022-08-13] MEDS: Carbidopa/Levodopa 25/100 TABLET 1 TAB PO (16:57)
[2022-08-13] MEDS: ceFAZolin Sodium/Dextrose,Iso 2 GM/50 ML PIGGYBACK IV (19:56)
[2022-08-13] MEDS: 0.9 % Sodium Chloride Flush 3 ML SYRINGE IVFLUSH (19:56)
[2022-08-13] MEDS: Celecoxib 200 MG CAPSULE PO (20:19)
[2022-08-13] MEDS: Docusate Sodium 100 MG CAPSULE PO (20:19)
[2022-08-14 03:20] VITALS: BP 146/67; PULSE 66; RESP 18; TEMP 36.6; O2SAT 95
[2022-08-14] MEDS: Omeprazole 20 MG CAPSULE.DR PO (05:43)
[2022-08-14 06:31] LABS: Basophils Percent Auto 0.2 % (0-2); Eosinophils Percent Auto 0.1 % (0-4); Hematocrit 38.8 % (42.0-52.0); Hemoglobin 13.4 g/dl (14.0-18.0); Imm Gran Abs Auto 0.05 X10*3/uL (0.00-0.03); Imm Gran Pct Auto 0.4 % (0.0-0.4); Lymphocytes Absolute Auto 1.1 X10*3/uL (1.2-4.9); Lymphocytes Percent Auto 8.9 % (20-40); MANUAL DIFF FLAG SCAN; Mean Corpuscular HGB Conc 34.5 g/dl (31.0-36.0); Mean Corpuscular Hemoglobin 31.6 pg (27.0-33.0); Mean Corpuscular Volume 91.5 fL (80.0-98.0); Mean Platelet Volume 10.3 fL (9.4-12.4); Monocytes Absolute Auto 1.6 X10*3/uL (0.1-1.2); Monocytes Percent Auto 13.8 % (2-11); Neutrophils Absolute Auto 9.1 x10*3/uL (2.0-8.3); Neutrophils Percent Auto 76.6 % (45-73); Platelet Count 265 X10*3/uL (160-400); Red Blood Count 4.24 X10*6/uL (4.60-5.80); Red Cell Distribution Width 12.6 % (11.0-16.0); SCAN SMEAR FLAG 1; White Blood Count 11.9 X10*3/uL (4.8-10.8)
[2022-08-14 07:00] LABS: Anion Gap 12 (12-20); Blood Urea Nitrogen 25 mg/dL (9-16); Carbon Dioxide 24 mmol/L (22-29); Chloride 108 mmol/L (96-108); Creatinine Clr Calc Pharmacy 57.2; Estimated Glomerular Filt Rate > 60; Glucose Fasting 116 mg/dL (60-99); Potassium 4.4 mmol/L (3.3-5.1); Sodium 140 mmol/L (135-145)
[2022-08-14 07:22] VITALS: BP 154/66; PULSE 62; RESP 18; TEMP 36.6; O2SAT 94
[2022-08-14] MEDS: Celecoxib 200 MG CAPSULE PO (07:41)
[2022-08-14] MEDS: Lactated Ringers 1,000 ML 100 ML IVCONT (07:41)
[2022-08-14] MEDS: Carbidopa/Levodopa 25/100 TABLET 1 TAB PO ×2 (07:41→16:24)
[2022-08-14] MEDS: Docusate Sodium 100 MG CAPSULE PO (07:42)
[2022-08-14] MEDS: Acetaminophen 325 MG TABLET 650 MG PO ×2 (07:42→16:24)
--- NOTE | 2022-08-14 07:47 | PM.PNORT ---
Subjective Subjective Date of Service: 08/14/22 Principal diagnosis: POD#1 s/p right TSA. Interval history: No o/n events. Block wearing off. Physical Exam Vital Signs: Vital Signs: Last Vital Signs Temp 98 F 08/14/22 07:22 Pulse 62 08/14/22 07:22 Resp 18 08/14/22 07:22 BP 154/66 H 08/14/22 07:22 Pulse Ox 94 08/14/22 07:22 O2 Del Method Room Air 08/14/22 07:22 O2 Flow Rate 2 08/13/22 18:41 BMI result Body Mass Index 25.3 Extrem: Other: Dressing c/d/i hand still numb wiggling fingers ulnar > radial Procedures Date of Service Date of Service: 08/14/22 Progress Note: A&P Assessment and plan (1) S/P shoulder replacement: Status: Acute Assessment and Plan: POD#1 doing well PT/OT TSA protocol-instructed on proper sling use and avoid ER > 0 deg ASA 81 QD PO pain control Dispo planning Time Spent With Patient Time: Total time managing care of this patient today _5___ minutes. Quality Stroke Does the patient have a stroke diagnosis?: No VTE Prior VTE?: No VTE Risk Level:: Surgical - low VTE Device Contraindication: N/A - Device Ordered VTE Drug Contraindication: N/A - Med Ordered
[2022-08-14 08:05] LABS: SLIDE REVIEW VERIFIED
[2022-08-14] MEDS: Aspirin Enteric Coated 81 MG TABLET.DR PO (09:48)
[2022-08-14 11:32] VITALS: BP 146/72; PULSE 75; RESP 16; TEMP 36.9; O2SAT 95
--- NOTE | 2022-08-14 11:57 | HO.POSTANES ---
Post Anesthesia Evaluation Post Anesthesia Evaluation Date of Service: 08/14/22 Vital Signs: Vital Signs Temp Pulse Resp BP Pulse Ox O2 Del Method 08/14/22 11:32 98.5 F 75 16 146/72 H 95 Room Air 08/14/22 07:22 98 F 62 18 154/66 H 94 Room Air 08/14/22 03:20 97.8 F 66 18 146/67 H 95 Room Air Anesthesia: Nerve Block and General Endotracheal-GETA Mental Status: Awake Pain Control: Satisfactory (complaining of pain) Nausea/Vomiting: None Hydration: Adequate Anesthesia-Related Issues: No Anes. Related Issues
--- NOTE | 2022-08-14 13:18 | MHC.CM.PN ---
PATIENT LIVES WITH /HCP COPY COMPLETED AT RAILROAD MECHANIC'S OFFICE. HE IS INDEPENDENT WITH ALL ADLS PATIENT REPORTS WANTING TO GO HOME TODAY AND FEELS NO NEED FOR SERVICES. IMM 08/14 IN CHART
[2022-08-14 15:31] VITALS: BP 158/71; PULSE 60; RESP 18; TEMP 36.4; O2SAT 95
--- NOTE | 2022-08-14 16:56 | P.DS_ITS ---
DS: Providers Provider Date of Service: 08/14/22 Date of admission: 08/13/22 10:36 Primary care physician: Shaila Alex MD Consults: 08/13/22 19:17 Consult to Hospitalist Routine Comment: BPH, cerebellar atrophy Consulting Provider: Hospitalist Reason For Exam: BPH, cerebellar atrophy DS: Diagnosis Discharge Diagnosis (1) S/P shoulder replacement: Status: Acute DS: Summary Hospital Course Hospital Course: The patient underwent a successful Right total shoulder arthroplasty on 08/13/22 , was transferred to PACU and then to the floor to recover. During their stay, t heir vitals were stable, afebrile at 97.5 . Labs were unremarkable, H/H 13.4/38.8 . POD 1 he was started on ASA 81 mg for DVT ppx, they also received Occupational Therapy services twice a day. Physical therapy/ Occupational therapy should include protection of the sub scap repair-no ER beyond neutral. Periscap stabilization. Sling at all times except for hygiene or therapy. Prior to discharge, his dressing was clean dry and intact. The Aquacel dressing shoulder remain intact and dry at all times. Any concerns with the dressing, please contact orthopedic office. No showering. The plan is to be discharged home with vna Time Spent with Patient Time attestation: Total time managing care of this patient today ____ minutes. Discharge coordination time: Less than 30 minutes Quality: Safe Use of Opioids Does Pt have an Active Cancer Diagnosis on the Problem List?: No Quality: Stroke Does the patient have a stroke diagnosis?: No Physical Exam Vital Signs: Vital Signs: Last Vital Signs Temp 97.5 F 08/14/22 15:31 Pulse 60 08/14/22 15:31 Resp 18 08/14/22 15:31 BP 158/71 H 08/14/22 15:31 Pulse Ox 95 08/14/22 15:31 O2 Del Method Room Air 08/14/22 15:31 O2 Flow Rate 2 08/13/22 18:41 BMI result Body Mass Index 25.3 Extrem: Other: Dressing c/d/i hand still numb wiggling fingers ulnar > radial DS: Data Data Completed and Pending Pending studies at discharge: Pending at discharge 08/13/22 14:37 Surgical [PTH] Routine Labs on day of discharge: Laboratory Results - last 24 hr 08/14/22 08/14/22 05:44 05:44 WBC 11.9 H RBC 4.24 L Hgb 13.4 L Hct 38.8 L MCV 91.5 MCH 31.6 MCHC 34.5 RDW 12.6 Plt Count 265 MPV 10.3 Immature Gran % (Auto) 0.4 Neut % (Auto) 76.6 H Lymph % (Auto) 8.9 L Ballard % (Auto) 13.8 H Eos % (Auto) 0.1 Baso % (Auto) 0.2 Lymph # (Auto) 1.1 L Ballard # (Auto) 1.6 H Eos # (Auto) 0.0 Baso # (Auto) 0.0 Abs Immat Gran (auto) 0.05 H Absolute Neuts (auto) 9.1 H Absolute Nucleated RBC 0.000 Nucleated RBC % (auto) 0.0 Smear Tech's Comments VERIFIED Sodium 140 Potassium 4.4 Chloride 108 Carbon Dioxide 24 Anion Gap 12 BUN 25 H Creatinine 1.01 Estim Creat Clear Calc 57.2 Estimated GFR > 60 Fasting Glucose 116 H Calcium 9.0 D Discharge Plan Discharge Anticipated Discharge Date/Time: 08/14/22 16:38 Patient Disposition: Home Health Service Discharge Diagnosis: rt tsa Referrals: Davina Hoffman PA-C [Physician Dipper Operator] - 2 Weeks (08/29/22 11:30 [facility] [place] Orthopedic Surgeons Davina Hoffman PA-C) Discharge Medications: New acetaminophen 325 mg Tablet 650 mg PO Q6H PRN (Reason: Pain, Mild (Pain Scale 1-3)) 30 Days Qty: 240 0RF aspirin 81 mg Tablet,Delayed Release (Dr/Ec) 81 mg PO DAILY 42 Days Qty: 42 0RF celecoxib 200 mg Capsule 200 mg PO BID 30 Days Qty: 60 0RF docusate sodium 100 mg Capsule 100 mg PO BID 7 Days Qty: 14 0RF oxycodone 5 mg Tablet 5 mg PO Q4H PRN (Reason: Pain, Moderate(Pain Scale 4-6)) 7 Days Qty: 42 0RF Rx Instructions: Partial Fill upon patient request. Continued pravastatin 20 mg tablet 20 mg PO DAILY Qty: 90 2RF finasteride 5 mg tablet 5 mg PO DAILY Qty: 90 2RF omeprazole 20 mg capsule,delayed release(DR/EC) 20 mg PO DAILY 90 Days Qty: 90 2RF multivitamin Tablet 1 tab PO DAILY Qty: 90 0RF lisinopril 40 mg tablet 40 mg PO DAILY 90 Days Qty: 90 2RF Fish Oil 100-160-1,000 mg capsule PO carbidopa-levodopa 25-100 mg tablet 1 tab PO BID Qty: 60 3RF Discharge Orders: Discharge Order (Routine); Ordered 08/14/22 Ordered By: Davina Hoffman Diet: Regular diet Activity on Discharge: sling Stand Alone Forms: Patient Portal Discharge page Care Plan Goals: Restore function of joint Health Concerns: none Plan of Treatment: * Wear sling at all times unless for hygiene and exercises * Pendelums three times a day * Physical Therapy/ Occupational therapy -protect subscap repair * ---No raising Right arm above 30 degrees, No ER/IR beyond neutral, no Abduction beyond 90 degrees * ---No heavy lifting * ---Elbow and wrist ROM ok * Follow up with orthopedics in 2 weeks Assessment: Physical Therapy Pain management DVT prophylaxis
--- NOTE | 2022-08-21 14:02 | P.OP_ITS ---
Operative Note Operative Note Date of Service: 08/13/22 Narrative: Date of Service: 08/13/22 Pre-op diagnosis: Right shoulder OA Post-op diagnosis: same Procedure: Right shoulder arthroplasty Implants: Miriam Wilkinson [id number] Size 2 nucleus with 40 cortiloc glenoid Surgeon: Zurdo Mendez MD Anesthesia: GETA and regional Was an Six Sigma Project Manager used for this Procedure?: Yes Six Sigma Project Manager: Davina Hoffman Estimated blood loss (mL): 150 IV fluids (mL): 800 Pathology: other Condition: stable Disposition: PACU Procedure in detail: Patient was brought to the operating room and placed in the beach chair position on the surgical table. The limb was prepped and draped in standard sterile fashion and a time out was called to identify proper site, proper procedure and IV antibiotics per weight were administered. I began by making a deltopectoral incision from the coracoid to the pectoralis insertion.? Blunt dissection identified the cephalic vein which was retracted laterally.? Blunt dissection was taken down to the 3 sisters which were cauterized.? I then dissected the tendonous portion of the subscapularis off the capsule and incised this with ~1.0 cm of a lateral cuff.This was then tagged and the arm was externally rotated and extended and a capsulotomy was performed. The biceps tendon was identified and tenpotomized and the the head was dislocated.? The humeral head was eburnated and there was a very large inferior osteophyte that was removed with an osteotome.? The RTC was intact. An anatomic head cut was made in patient's natural inclination (approximately 132 degree) .? A guide pin was placed through the center of the had into the greater tuberosity. The central peg was reamed and then a protector was placed and I turned my attention to the glenoid. Posterior anterior and superior glenoid retractors were placed and the biceps was further tenotomized and excess labral tissue was removed.? Based on the preoperative CT and templating a guide pin was placed in approximately 5 degrees of retroversion and neutral inclination.? Using a wedge Reamer I reamed down circumferentially with minimal bone loss and placed the size 2 glenoid drill guide and drilled peg holes using standard AO technique. One bag of bone cement was mixed on the back table. My final glenoid was cemented in place while applying axial compression. Once the cement was dry all excess cement was removed. I then returned to the humerus where I trialed a [id number] head. I was sa tisfied with the height and the stability. I irrigated copiously and then placed my final humeral implant. I was satisfied with the stability and range. I then irrigated and repaired the subscapularis with fiberwire.? I closed in a layered fashion with absorbable suture and osiel and the patient was placed in a sterile dressing and an abduction sling.? He was extubated brought to recovery room stable condition there were no known complications.
== END 2022-08-14 17:51 | disposition home health service (06) | DRG 483 ==
LOC: HO.SSSA 10:39 → HO.S3 18:48
PROVIDERS: Nurse Practitioner Family; Orthopaedic Surgery; Admitting Provider Physician Assistant; PCP Internal Medicine; Visit Provider Physician Assistant
PROC: 0RRJ0JZ Replacement of Right Shoulder Joint with Synthetic Substitute, Open Approach (ICD-10-PCS; CPT 23472; principal; 2022-08-13 11:50)
DX: M19.011 Primary osteoarthritis, right shoulder (principal); E78.00 Pure hypercholesterolemia, unspecified; G89.18 Other acute postprocedural pain; K21.9 Gastro-esophageal reflux disease without esophagitis; I10 Essential (primary) hypertension; Z79.82 Long term (current) use of aspirin; Z79.899 Other long term (current) drug therapy
CPT/HCPCS: 23472; 36415; 73030; 80048; 84443; 85025; 85027; 85610; 86850; 86900; 86901; 87640; 87641; 88304; 88311; 93005; 97165; C1713; C1776; J0690; J1100; J2405; J3010

== ENCOUNTER 2022-08-29 08:40 | Outpatient (REF) | payer MEDICARE, SELFPAY ==
--- NOTE | ~2022-08-29 | XR_ITS ---
EXAMINATION: XR SHOULDER, RIGHT CLINICAL INFORMATION: Pain COMPARISON: Previous x-ray most recent 08/14/2022 TECHNIQUE: Two views of the right shoulder. FINDINGS: Right shoulder replacement in satisfactory position. No fracture or dislocation. Postsurgical changes to the soft tissues. XR/XR shoulder RT min 2V IMPRESSION: Satisfactory appearance of right shoulder replacement.
== END 2022-08-29 08:41 | disposition home or self-care (01) ==
LOC: HO.HOSX 08:40
PROVIDERS: Visit Provider Physician Assistant
DX: Z47.1 Aftercare following joint replacement surgery (principal); Z96.611 Presence of right artificial shoulder joint
CPT/HCPCS: 73030; 99212

== ENCOUNTER 2022-10-07 09:09 | Outpatient (AMB) | payer MEDICARE, SELFPAY ==
[2022-10-07 09:12] VITALS: BMI 24.3
--- NOTE | 2022-10-07 09:12 | MHC.OFFVIS ---
Intake Vital Signs 10/07/22 09:12 Height 5 ft 8 in Weight 160 lb BMI 24.3 Intake Visit Reasons: p.o RT TSA 08/13/22 NE- Intake Note: Eyad is a 76 year old male who presents today for a post operative right TSA, 08/13/22. Patient reports he is doing well and has no pain. States he is doing well with P.T. Xrays updated in office. Allergies No Known Allergies Allergy (Mild, Verified 10/07/22 09:16) NONE Medication List - Last Reconciled 10/07/22 by Davina Hoffman PA-C acetaminophen 650 mg (2 x 325 mg) PO Q6H PRN 30 days aspirin 81 mg PO DAILY 6 weeks carbidopa-levodopa 25-100 mg 1 tab PO BID celecoxib 200 mg PO BID 30 days docusate sodium 100 mg PO BID 7 days finasteride 5 mg PO DAILY lisinopril 40 mg PO DAILY 90 days multivitamin 1 tab PO DAILY omega 4-nwt-uaw-fish oil 100-160-1,000 mg (Fish Oil) caps PO omeprazole 20 mg PO DAILY 90 days oxycodone 5 mg PO Q4H PRN 7 days pravastatin 20 mg PO DAILY HPI p.o RT TSA 08/13/22 NE- HPI Details 77-year-old male who returns to the office today for post-op right TSA, 08/13/[address] Mendez. He denies any pain and is doing well overall. He is working with physical therapy with benefits. He has no other concerns. [facility] Medical History Arthritis Benign essential HTN Benign prostate hyperplasia Cancer Cerebellar atrophy GERD (gastroesophageal reflux disease) Habitual snoring Hypercholesterolemia LFT elevation Myelopathy Pre-op evaluation Surgical History H/O eye surgery H/O medial meniscus repair of left knee History of colonoscopy History of knee replacement Family History Father No problems noted. Mother No problems noted. 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 No erythema or swelling. Sensations are intact. Results Reviewed Results Reviewed: Xrays were obtained in the office today and personally reviewed by me of the right shoulder show intact shoulder prosthesis Assessment & Plan Assessment & Plan (1) S/P shoulder replacement: Comment: Right shoulder arthroplasty Dr. Mendez July 2022 Code(s): Z96.619 - Presence of unspecified artificial shoulder joint Plan He will continue working with physical therapy slowly increasing to gentle RTC strengthening following the subscap repair protocol. 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 I would like to see him back in [address] Mendez and new x-rays, sooner if needed. Orders: Orders XR shoulder RT min 2V Today M25.511 - Pain in right shoulder PT Evaluation and Treatment Today Z96.619 - Presence of unspecified artificial shoulder joint Patient Instructions: Scribed for Davina Hoffman PA-C, by Sudarshan Conrad medical transcription supervisor, on 10/07/2022 at 9:15 AM EST. I, Davina Hoffman PA-C, have personally reviewed and agree with the information entered by the scribe. Coding Level of Care Code Global (00671) Diagnoses S/P shoulder replacement Z96.619
== END 2022-10-07 09:50 | disposition home or self-care (01) ==
PROVIDERS: PCP Internal Medicine; Visit Provider Physician Assistant
DX: Z96.619 Presence of unspecified artificial shoulder joint (principal)
CPT/HCPCS: 99024

== ENCOUNTER 2022-10-07 11:50 | Outpatient (REF) | payer MEDICARE, SELFPAY ==
--- NOTE | ~2022-10-07 | XR_ITS ---
EXAMINATION: XR SHOULDER, RIGHT CLINICAL INFORMATION: Pain in right shoulder COMPARISON: 08/29/2022 TECHNIQUE: Two views of the right shoulder. FINDINGS: Status post reverse partial glenohumeral arthroplasty. No fracture or dislocation. Skin osiel have been removed. XR/XR shoulder RT min 2V IMPRESSION: Status post reverse partial shoulder arthroplasty. No fracture or dislocation.
== END 2022-10-07 11:51 | disposition home or self-care (01) ==
LOC: HO.HOSX 11:50
PROVIDERS: Visit Provider Physician Assistant
DX: Z47.1 Aftercare following joint replacement surgery (principal); Z96.611 Presence of right artificial shoulder joint
CPT/HCPCS: 73030

== ENCOUNTER 2022-10-28 10:44 | Outpatient (AMB) | payer MEDICARE, SELFPAY ==
--- NOTE | 2022-10-28 10:54 | A.OFFVIS_ITS ---
Intake Vital Signs 10/28/22 11:00 BP 150/92 H Blood Pressure Location Rt brachial Position Sitting Pulse 63 Pulse Source Pulse Oximeter Pulse Oximetry (%) 98 Oxygen Delivery Method Room Air Intake Visit Reasons: 3m follow up Dysarthria/Anarthria-confirmed Intake Note: Patient presents for 3 month follow up Allergies No Known Allergies Allergy (Mild, Verified 10/28/22 10:56) NONE Medication List - Last Reconciled 10/28/22 by Liane Moe MD acetaminophen 650 mg (2 x 325 mg) PO Q6H PRN 30 days carbidopa-levodopa 25-100 mg 1 tab PO TID celecoxib 200 mg PO BID 30 days docusate sodium 100 mg PO BID 7 days finasteride 5 mg PO DAILY lisinopril 40 mg PO DAILY 90 days multivitamin 1 tab PO DAILY omega 7-wrc-akw-fish oil 100-160-1,000 mg (Fish Oil) caps PO omeprazole 20 mg PO DAILY 90 days pravastatin 20 mg PO DAILY HPI HPI Comments 2 History of Present Illness Details 77y/o right handed male comes for follow up of dysarthria .He did not notice change with sinemet. Speech tehrapy helped. He is speaking slower and is conscious of pronouncing his words clearly. He started noticing slurring of speech about 3 years ago and has progressed since. He denies any word finding difficulties or problems comprehending , no troubles reading or writing. He denies any swallowing issues. He has gait issues - no falls , feels off balance . patient has cervical spinal stenosis, twyla knee replacements etc. He denies any heavy alcohol uses. He denies family h/o speech disturbance. He denies any involuntary movements He denies any memory problems .He has occasional diplopia, no vertigo . No family h/o dysarthria or cerebellar issues. [facility] Medical History Arthritis Benign essential HTN Benign prostate hyperplasia Cancer Cerebellar atrophy GERD (gastroesophageal reflux disease) Habitual snoring Hypercholesterolemia LFT elevation Myelopathy Pre-op evaluation Surgical History H/O eye surgery H/O medial meniscus repair of left knee H/O shoulder surgery History of colonoscopy History of knee replacement Family History Father No problems noted. Mother No problems noted. 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 Cognitive needs: No Hearing needs: No Vision needs: Yes Review of Systems Neuro Reports Abnormal speech present Physical Exam Vital Signs: Last Vital Signs Pulse 63 10/28/22 11:00 BP 150/92 H 10/28/22 11:00 Pulse Ox 98 10/28/22 11:00 Oxygen Delivery Method Room Air 10/28/22 11:00 Const Orientation/consciousness: patient oriented x3 Neuro Other: Dysarthria Finger nose- bilateral past pointing and dysmetria Unable to do tandem Severely decreased blink General: patient oriented x3, tone normal, moves all extremities and no focal motor deficits Cranial nerves: Yes Facial sensation intact/muscles of mastication intact, Yes Bilaterally intact EOM present, Yes Nystagmus not present, Yes Normal facial strength present, Yes Midline tongue present, Yes Normal gag reflex present and Yes Symmetric palate elevation present Cognition (Neuro): normal cognition Speech: Abnormal speech present Gait exam (Neuro): Normal gait present Motor exam (neuro): 5/5 motor strength present throughout and Normal motor muscle tone present throughout Psych Appearance: grossly normal Assessment & Plan Assessment & Plan (1) Dysarthria: Comment: MRI brain February 2022No acute intracranial abnormality. No infarct, mass, or extra-axial fluid collection. Stable enlargement of the left temporal horn. Redemonstration of disproportionate cerebellar volume loss. Code(s): R47.1 - Dysarthria and anarthria (2) Cerebellar atrophy: Comment: ? 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
[2022-10-28 11:00] VITALS: BP 150/92; PULSE 63; O2SAT 98
== END 2022-10-28 11:19 | disposition home or self-care (01) ==
PROVIDERS: Visit Provider Psychiatry & Neurology Neurology
DX: R47.1 Dysarthria and anarthria (principal); G31.9 Degenerative disease of nervous system, unspecified
CPT/HCPCS: 99214

== ENCOUNTER → 2022-10-28 10:44 | Outpatient (BNVA) | payer MEDICARE, SELFPAY | PROVIDERS: Visit Provider Psychiatry & Neurology Neurology | DX: R47.1 Dysarthria and anarthria (principal); G31.9 Degenerative disease of nervous system, unspecified | CPT/HCPCS: 99212 ==

== ENCOUNTER 2022-11-13 10:00 | Outpatient (RCR) | payer MEDICARE, SELFPAY ==
--- NOTE | 2022-08-29 15:07 | MHC.PT.EP ---
[facility] [place] Office [place] Office [place] Office [address] Jose Francisco Barrera [address] [phone] F: [phone] F: [phone] F: [phone] F: [phone] Physical Therapy Plan of Care Date of Evaluation: Date of Surgery: 08/13/2022 Diagnosis: s/p RIGHT TSA (DOS: 08/13/22) with subscapularis repair Assessment: Patient is a 76 y.o. male who is referred to PT by Davina Hoffman with Dx of RIGHT TSA with subscapularis repair. Patient impairments include pain, bruising, limited ROM, weakness. Patient current functional limitations are unbale to lift and use R arm, writing, bathing, cooking, cleaning.Patient will benefit from skilled PT to address aforementioned impairments and functional limitations to meet established goals. Frequency and Duration: The patient will be seen 3x/week for 4 weeks Short Term Goals: 2 weeks Patient demonstrates consistency and independence with HEP to self manage symptoms. Patient presents with increased PROM R shoulder 100 degrees without tissue restriction to stay on course with protocol. 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 Patient presents with increased R shoulder flexion AAROM 120 degrees to begin to reach head overhead for bathing. Treatment Plan: Modalities to reduce pain, spasms and effusion. Manual therapy to restore motion and function. Therapeutic exercise to improve strength and flexibility. Neuromuscular re-education for posture and balance. Therapeutic activities to return to functional activities of daily living. Electronically signed by: Julianne Wright, PT, DPT Please sign and return to therapist. Thank you for your referral.
--- NOTE | 2022-11-13 11:46 | MHC.PT.DC ---
[facility] [place] Office [place] Office [place] Office [address] Jose Francisco Barrera [address] [phone] F: [phone] F: [phone] F: [phone] F: [phone] Physical Therapy Discharge Report Diagnosis: s/p RIGHT TSA (DOS: 08/13/22) with subscapularis repair Date of Surgery: 08/13/2022 Date of Evaluation: 08/29/22 Date of Discharge: 11/13/22 Treatments to Date: 27 Cancellations to Date: No Shows to Date: Discharge Status: Achieved Goals Improved Function Independent with HEP Discharge Summary: He has shown significant improvement in ROM and strength and has not been having any pain. He has typical tightness in shoulder that improves with stretching. He shows the ability to self manage symptoms at home and has HEP with pulleys and band resistance. He is appropriate for discharge from PT at this time and has FUP with orthopedic next week. Electronically signed by: Julianne Wright, PT, DPT Please sign and return to therapist. Thank you for your referral.
== END 2022-11-13 11:47 | disposition home or self-care (01) ==
LOC: HO.PT 10:00
PROVIDERS: PCP Internal Medicine; Visit Provider Physician Assistant
DX: Z96.611 Presence of right artificial shoulder joint (principal)
CPT/HCPCS: 97110; 97140; 97161

== ENCOUNTER 2022-11-18 08:09 | Outpatient (REF) | payer MEDICARE, SELFPAY ==
--- NOTE | ~2022-11-18 | XR_ITS ---
EXAMINATION: XR SHOULDER, RIGHT CLINICAL INFORMATION: Right shoulder pain COMPARISON: 10/07/2022. TECHNIQUE: Three views of the right shoulder. FINDINGS: Status post reverse partial glenohumeral arthroplasty. Redemonstration of postsurgical changes of prior distal clavicular resection at the AC joint, better characterized on CT scan of 08/07/2022. Redemonstration of soft tissue calcifications inferior to the glenohumeral joint. XR/XR shoulder RT min 2V IMPRESSION: Status post reverse partial shoulder arthroplasty. No dislocation.
== END 2022-11-18 08:10 | disposition home or self-care (01) ==
LOC: HO.HOSX 08:09
PROVIDERS: Visit Provider Orthopaedic Surgery
DX: M25.511 Pain in right shoulder (principal)
CPT/HCPCS: 73030

== ENCOUNTER 2022-11-18 08:57 | Outpatient (AMB) | payer MEDICARE, SELFPAY ==
--- NOTE | 2022-11-18 09:22 | MHC.OFFVIS ---
Intake Intake Visit Reasons: Ov-RT TSA 08/13/22 NE with xrays Intake Note: Eyad is a 76 year old right hand dominant male who presents today for a follow up of his right shoulder s/p Right TSA, 08/13/22. Patient reports that he is doing well with no concerns. Allergies No Known Allergies Allergy (Mild, Verified 11/18/22 09:23) NONE HPI Ov-RT TSA 08/13/22 NE with xrays HPI Details Eyad is a 77 year old man who presents ~3 months S/P right TSA. He says he is doing well and does not have any complaints. He is happy with the results of his surgery and he is able to sleep much better at night. [facility] Medical History Arthritis Benign essential HTN Benign prostate hyperplasia Cancer Cerebellar atrophy GERD (gastroesophageal reflux disease) Habitual snoring Hypercholesterolemia LFT elevation Myelopathy Pre-op evaluation Surgical History H/O eye surgery H/O medial meniscus repair of left knee H/O shoulder surgery History of colonoscopy History of knee replacement Family History Father No problems noted. Mother No problems noted. 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 Cognitive needs: No Hearing needs: No Vision needs: Yes Review of Systems Const All systems reviewed & are unremarkable except as noted in HPI and below Physical Exam Const General: no acute distress, alert and awake Orientation/consciousness: patient oriented x3 HEENT Head: Yes normocephalic and Yes atraumatic Eyes EOM: EOMs intact bilaterally Resp Effort & Inspection: normal respiratory effort and able to speak in complete sentences Cardio Jugular venous distension: no JVD Skin General skin exam: turgor normal Rashes: no rashes Neuro General: patient oriented x3 Extrem Other: Right Shoulder: Well-healed incision 90/110/30 Psych Appearance: grossly normal Affect: normal affect Attitude: cooperative Results Reviewed Results Reviewed: I personally reviewed relevant radiographs. Right total shoulder arthroplasty in expected post operative position with no hardware complications or evidence of loosening Assessment & Plan Assessment & Plan (1) S/P shoulder replacement: Comment: Right shoulder arthroplasty Dr. Mendez July 2022 Code(s): Z96.619 - Presence of unspecified artificial shoulder joint Plan: This is a 77 year old man S/P right TSA, DOS: 08/13/22. He is doing very well and denies any pain. His nighttime pain has improved and he is happy with the results of his surgery. I recommend he remain active and avoid overhead lifting > 10 lbs.He can follow up in 9 months or as needed. Plan Scribed for Zurdo Mendez MD by Brandin Fernández, medical reimbursement manager, on 11/18/22 at 9:25 AM, EST. Orders: Orders XR shoulder RT min 2V Today M25.519 - Pain in unspecified shoulder Coding Level of Care Code Global (58399) Diagnoses S/P shoulder replacement Z96.619
== END 2022-11-18 09:36 | disposition home or self-care (01) ==
PROVIDERS: PCP Internal Medicine; Visit Provider Orthopaedic Surgery
DX: Z47.1 Aftercare following joint replacement surgery (principal); Z96.611 Presence of right artificial shoulder joint
CPT/HCPCS: 99213

== ENCOUNTER 2022-11-26 10:34 | Outpatient (AMB) | payer MEDICARE, SELFPAY ==
[2022-11-26 10:41] VITALS: BP 144/70; PULSE 73; O2SAT 96; BMI 25.1
--- NOTE | 2022-11-26 10:41 | A.OFFPC_ITS ---
Vital Signs 11/26/22 10:41 Height 5 ft 8 in Weight 165 lb BMI 25.1 BP 144/70 H Blood Pressure Location Lt brachial Position Sitting Pulse 73 Pulse Source Pulse Oximeter Pulse Oximetry (%) 96 Oxygen Delivery Method Room Air Intake Visit Reasons: follow up Allergies No Known Allergies Allergy (Mild, Verified 11/26/22 10:42) NONE Medication List - Last Reconciled 11/26/22 by Shaila Alex MD acetaminophen 650 mg (2 x 325 mg) PO Q6H PRN 30 days celecoxib 200 mg PO BID 30 days docusate sodium 100 mg PO BID 7 days finasteride 5 mg PO DAILY lisinopril 40 mg PO DAILY 90 days multivitamin 1 tab PO DAILY omega 4-ddq-zgv-fish oil 100-160-1,000 mg (Fish Oil) caps PO omeprazole 20 mg PO DAILY 90 days pravastatin 20 mg PO DAILY Tobacco use date assessed: 07/24/22 Fall risk assessment: No Falls in past year Last assessed Fall Risk: 11/26/22 Dental Screening Dental Screen Date: 11/26/22 Did you have a dental visit in the last 12 months?: Yes Did you have a dental problem in the last 6 months where you did not have access to dental care?: No Was dental information given to patient?: Patient has dentist HPI follow up HPI Details 77-year-old male with hypertension dysarthria GERD hypercholesterolemia right shoulder osteoarthritis coming in for follow-up. Last seen in May 2022 blood work was requested. Patient did have right shoulder arthroplasty 08/13/2022 in doing good. Patient also follows up with neurology for the dysarthria on speech therapy as well as Sinemet. Diagnosis cerebellar atrophy spin no cerebellar ataxia multi-system atrophy placed on carbidopa/levodopa 25 /100 mg 3 times a day. Patient also follows up with urology elevated PSA presently stable PSA for the BPH on finasteride. PAtient stopped sinemet due to slept the whole days [facility] Medical History Arthritis Benign essential HTN Benign prostate hyperplasia Cancer Cerebellar atrophy GERD (gastroesophageal reflux disease) Habitual snoring Hypercholesterolemia LFT elevation Myelopathy Pre-op evaluation Surgical History H/O eye surgery H/O medial meniscus repair of left knee H/O shoulder surgery History of colonoscopy History of knee replacement Family History Father No problems noted. Mother No problems noted. 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 1. Little interest or pleasure in doing things: not at all 2. Feeling down, depressed, or hopeless: not at all 3. Trouble falling or staying asleep, or sleeping too much: not at all 4. Feeling tired or having little energy: not at all 5. Poor appetite or overeating: not at all 6. Feeling bad about yourself - or that you are a failure or have let yourself or your family down: not at all 7. Trouble concentrating on things, such as reading the newspaper or watching television: not at all 8. Moving or speaking so slowly that other people could have noticed. Or the opposite - being so fidgety or restless that you have been moving around a lot more than usual: several days 9. Thoughts that you would be better off or of hurting yourself in some way: not at all Total score: 1 Depression Screening Interpretation: Negative 60776 - PHQ-9 Billing: Yes Source: Developed by Drs. Stephen Baer, Marialuisa Bailey, Bishnu Beltran and colleagues, with an educational vivienne from [employer]. Thrive Questionnaire Date Thrive assessed: 05/22/22 AUDIT C Alcohol Use Questionnaire (AUDIT-C) 1. How often do you have a drink containing alcohol?: Never 3. How often do you have six or more drinks on one occasion?: Never Total Score: 0 Score Reviewed/Action Taken: No ROLAND-7 AMB Questionnaire ROLAND-7 Date ROLAND - 7 assessed: 05/22/22 Source: Developed by Drs. Stephen Baer, Marialuisa Bailey, Bishnu Beltran and colleagues, with an educational vivienne from [employer]. Physical exam (Primary Care) Vital Signs: Last Vital Signs Pulse 73 11/26/22 10:41 BP 144/70 H 11/26/22 10:41 Pulse Ox 96 11/26/22 10:41 Oxygen Delivery Method Room Air 11/26/22 10:41 BMI result Body Mass Index 25.1 Tobacco/Smoking Status: Tobacco use Status Tobacco use date assessed 07/24/22 11/26/22 10:48 Patient Tobacco Use Status Never used Tobacco 11/26/22 10:48 e-Cigarette/Vaping Use Never Used 11/26/22 10:48 PHQ-9: PHQ-9 Score PHQ-9: Total score 1 11/26/22 10:48 Depression Screening Interpretation: Negative Thrive Assessment: Date of Thrive Assessment Date Thrive assessed 05/22/22 11/26/22 10:48 Const General: alert; No acute distress Eyes Conjunctivae: conjunctivae normal Resp Auscultation: clear to auscultation bilaterally Cardio Rate: regular rate Rhythm: regular rhythm GI Inspection: Yes normal to inspection Extrem General: Yes normal to inspection and No edema Assessment and Plan Assessment & Plan (1) S/P shoulder replacement: Comment: Right shoulder arthroplasty Dr. Mendez July 2022 Code(s): Z96.619 - Presence of unspecified artificial shoulder joint Plan: Status post arthroplasty patient is doing good follows up with orthopedics (2) Dysarthria: Comment: MRI brain February 2022No acute intracranial abnormality. No infarct, mass, or extra-axial fluid collection. Stable enlargement of the left temporal horn. Redemonstration of disproportionate cerebellar volume loss. Code(s): R47.1 - Dysarthria and anarthria Plan: Patient has been follow-up with Neurology placed on Sinemet but due to drowsiness- stopped (3) GERD (gastroesophageal reflux disease): Code(s): K21.9 - Gastro-esophageal reflux disease without esophagitis Plan: Avoid the foods that causes that usually spicy foods, tomato products, juices, coffee, soda and foods that your sensitive to. After eating do not lie down, allow 3-4 hours before in lie down. And keep the head of bed above 30 degrees to avoid the acid from going up. (4) Hypercholesterolemia: Code(s): E78.00 - Pure hypercholesterolemia, unspecified Plan: Avoid fried foods, chicken skin, eggs, butter margarine, pastries and meat. Be it pork or beef they have a lot of cholesterol LDL goal of less than 130 and triglyceride of less than 150. Patient is on pravastatin May 2022 last blood work (5) Benign essential HTN: Code(s): I10 - Essential (primary) hypertension Plan: Continue with blood pressure medication. Decrease salt intake and exercise patient is on lisinopril 40 mg once a day. BP here is good advised to check the BP at home and record (6) Benign prostate hyperplasia: Code(s): N40.0 - Benign prostatic hyperplasia without lower urinary tract symptoms Plan: Continue to follow-up with Urology on finasteride 5 mg once a day Coding Level of Care Code Est Pt Level 4 (86696) Diagnoses S/P shoulder replacement Z96.619 Dysarthria R47.1 GERD (gastroesophageal reflux disease) K21.9 Hypercholesterolemia E78.00 Benign essential HTN I10 Benign prostate hyperplasia N40.0
== END 2022-11-26 11:11 | disposition home or self-care (01) ==
PROVIDERS: PCP Internal Medicine; Visit Provider Internal Medicine
DX: K21.9 Gastro-esophageal reflux disease without esophagitis (principal); I10 Essential (primary) hypertension; Z96.619 Presence of unspecified artificial shoulder joint; R47.1 Dysarthria and anarthria; E78.00 Pure hypercholesterolemia, unspecified; N40.0 Benign prostatic hyperplasia without lower urinary tract symptoms
CPT/HCPCS: 99214

== ENCOUNTER 2023-03-03 14:24 | Outpatient (AMB) | payer MEDICARE, SELFPAY ==
[2023-03-03 14:25] VITALS: BP 146/72; PULSE 77; O2SAT 98; BMI 24.8
--- NOTE | 2023-03-03 14:26 | MHC.PC.OV ---
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 Required: No Allergies No Known Allergies Allergy (Mild, Verified 03/03/23 14:44) NONE Medication List - Last Reconciled 03/03/23 by Shaila Alex MD acetaminophen 650 mg (2 x 325 mg) PO Q6H PRN 30 days celecoxib 200 mg PO BID 30 days docusate sodium 100 mg PO BID 7 days finasteride 5 mg PO DAILY hydrochlorothiazide 12.5 mg PO QAM lisinopril 40 mg PO DAILY 90 days multivitamin 1 tab PO DAILY omega 4-fid-smo-fish oil 100-160-1,000 mg (Fish Oil) caps PO omeprazole 20 mg PO DAILY 90 days pravastatin 20 mg PO DAILY Tobacco use date assessed: 03/03/23 Fall risk assessment: No Falls in past year Last assessed Fall Risk: 03/03/23 Dental Screening Dental Screen Date: 03/03/23 Did you have a dental visit in the last 12 months?: Yes Did you have a dental problem in the last 6 months where you did not have access to dental care?: No Was dental information given to patient?: Patient has dentist HPI Hypertension HPI Details 77-year-old male with a history of GERD hypercholesterolemia hypertension and BPH last seen in November 2022. Concerned about blood pressure elevation and advised to monitor at home. Colonoscopy is up-to-date patient follows up with dermatology seen January 2023 left anterior proximal thigh biopsy history of malignant melanoma. BP [facility] Medical History Arthritis Benign essential HTN Benign prostate hyperplasia Cancer Cerebellar atrophy GERD (gastroesophageal reflux disease) Habitual snoring Hypercholesterolemia LFT elevation Myelopathy Pre-op evaluation Surgical History H/O eye surgery H/O medial meniscus repair of left knee H/O shoulder surgery History of colonoscopy History of knee replacement Family History Father No problems noted. Mother No problems noted. 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 1. Little interest or pleasure in doing things: not at all 2. Feeling down, depressed, or hopeless: not at all 3. Trouble falling or staying asleep, or sleeping too much: not at all 4. Feeling tired or having little energy: not at all 5. Poor appetite or overeating: not at all 6. Feeling bad about yourself - or that you are a failure or have let yourself or your family down: not at all 7. Trouble concentrating on things, such as reading the newspaper or watching television: not at all 8. Moving or speaking so slowly that other people could have noticed. Or the opposite - being so fidgety or restless that you have been moving around a lot more than usual: several days 9. Thoughts that you would be better off or of hurting yourself in some way: not at all Total score: 1 Depression Screening Interpretation: Negative Depression Screening Done: Yes 57699 - PHQ-9 Billing: Yes Source: Developed by Drs. Stephen Baer, Bishnu Allison and colleagues, with an educational vivienne from [employer]. Thrive Questionnaire Date Thrive assessed: 05/22/22 AUDIT C Alcohol Use Questionnaire (AUDIT-C) 1. How often do you have a drink containing alcohol?: Never 3. How often do you have six or more drinks on one occasion?: Never Total Score: 0 Score Reviewed/Action Taken: No ROLAND-7 AMB Questionnaire ROLAND-7 Date ROLAND - 7 assessed: 05/22/22 Source: Developed by Drs. Stephen Baer, Bishnu Allison and colleagues, with an educational vivienne from [employer] [place]. Physical exam (Primary Care) Vital Signs: Last Vital Signs Pulse 77 03/03/23 14:25 BP 146/72 H 03/03/23 14:25 Pulse Ox 98 03/03/23 14:25 Oxygen Delivery Method Room Air 03/03/23 14:25 BMI result Body Mass Index 24.8 Tobacco/Smoking Status: Tobacco use Status Tobacco use date assessed 03/03/23 03/03/23 14:27 Patient Tobacco Use Status Never used Tobacco 03/03/23 14:27 e-Cigarette/Vaping Use Never Used 03/03/23 14:27 PHQ-9: PHQ-9 Score PHQ-9: Total score 1 03/03/23 14:46 Depression Screening Interpretation: Negative Thrive Assessment: Date of Thrive Assessment Date Thrive assessed 05/22/22 03/03/23 14:27 Const General: alert; No acute distress Eyes Conjunctivae: conjunctivae normal Resp Auscultation: clear to auscultation bilaterally Cardio Rate: regular rate Rhythm: regular rhythm GI Inspection: Yes normal to inspection Extrem General: Yes normal to inspection and No edema Assessment and Plan Assessment & Plan (1) Benign essential HTN: Code(s): I10 - Essential (primary) hypertension Plan: Continue with blood pressure medication. Decrease salt intake and exercise patient takes lisinopril 40 mg once a day. Discussed that patient also on celecoxib (2) Benign prostate hyperplasia: Code(s): N40.0 - Benign prostatic hyperplasia without lower urinary tract symptoms Plan: On finasteride 5 mg once a day (3) Hypercholesterolemia: Code(s): E78.00 - Pure hypercholesterolemia, unspecified Plan: Avoid fried foods, chicken skin, eggs, butter margarine, pastries and meat. Be it pork or beef they have a lot of cholesterol May 2022 last blood work (4) GERD (gastroesophageal reflux disease): Code(s): K21.9 - Gastro-esophageal reflux disease without esophagitis Plan: Avoid the foods that causes that usually spicy foods, tomato products, juices, coffee, soda and foods that your sensitive to. After eating do not lie down, allow 3-4 hours before in lie down. And keep the head of bed above 30 degrees to avoid the acid from going up. Medications: New hydrochlorothiazide 12.5 mg PO QAM 30 tabs 4RF I10 - Essential (primary) hypertension Discontinued celecoxib Discontinued Reason: Doctor's Order 200 mg PO BID 60 caps 0RF 30 days Coding Level of Care Code Est Pt Level 4 (24255) Diagnoses Benign essential HTN I10 Benign prostate hyperplasia N40.0 Hypercholesterolemia E78.00 GERD (gastroesophageal reflux disease) K21.9
== END 2023-03-03 15:16 | disposition home or self-care (01) ==
PROVIDERS: PCP Internal Medicine; Visit Provider Internal Medicine
DX: I10 Essential (primary) hypertension (principal); N40.0 Benign prostatic hyperplasia without lower urinary tract symptoms; E78.00 Pure hypercholesterolemia, unspecified; K21.9 Gastro-esophageal reflux disease without esophagitis
CPT/HCPCS: 99214

== ENCOUNTER 2023-05-12 14:11 | Outpatient (AMB) | payer MEDICARE, SELFPAY ==
--- NOTE | 2023-05-12 14:24 | MHC.PC.OV ---
Vital Signs 05/12/23 14:26 05/12/23 14:32 Height 5 ft 8 in Weight 166 lb BMI 25.2 BP 160/86 H 140/70 H Blood Pressure Location Lt brachial Lt brachial Position Sitting Sitting Pulse 80 Pulse Source Pulse Oximeter Pulse Oximetry (%) 98 Oxygen Delivery Method Room Air Intake Visit Reasons: 2 Month F/U Intake Note: Patient is here to follow up on HTN, BPH, Myelopathy. 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 Required: No Tumbler Tender: Not Required per policy Accompanied by: Self / Same As Patient Allergies No Known Allergies Allergy (Mild, Verified 05/12/23 14:26) NONE Tobacco use date assessed: 05/12/23 Fall risk assessment: No Falls in past year Last assessed Fall Risk: 05/12/23 Dental Screening Dental Screen Date: 05/12/23 Did you have a dental visit in the last 12 months?: Yes Did you have a dental problem in the last 6 months where you did not have access to dental care?: No Was dental information given to patient?: Patient has dentist HPI 2 Month F/U HPI Details 77-year-old male with hypertension BPH hypercholesterolemia GERD last seen in February 2023. Patient is here for follow-up. he had dog bite from own R thumb and pointer finger deceline antibiotic PFSH Medical History Arthritis Benign essential HTN Benign prostate hyperplasia Cancer Cerebellar atrophy GERD (gastroesophageal reflux disease) Habitual snoring Hypercholesterolemia LFT elevation Myelopathy Pre-op evaluation Surgical History H/O shoulder surgery H/O eye surgery History of knee replacement History of colonoscopy H/O medial meniscus repair of left knee Family History Father No problems noted. Mother No problems noted. 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 1. Little interest or pleasure in doing things: not at all 2. Feeling down, depressed, or hopeless: not at all 3. Trouble falling or staying asleep, or sleeping too much: not at all 4. Feeling tired or having little energy: not at all 5. Poor appetite or overeating: not at all 6. Feeling bad about yourself - or that you are a failure or have let yourself or your family down: not at all 7. Trouble concentrating on things, such as reading the newspaper or watching television: not at all 8. Moving or speaking so slowly that other people could have noticed. Or the opposite - being so fidgety or restless that you have been moving around a lot more than usual: not at all 9. Thoughts that you would be better off or of hurting yourself in some way: not at all Total score: 0 Depression Screening Interpretation: Negative Depression Screening Done: Yes Source: Developed by Drs. Stephen Baer, Marialuisa Bailey, Bishnu Beltran and colleagues, with an educational vivienne from [employer]. Thrive Questionnaire Date Thrive assessed: 05/12/23 I am a: Patient What is your living situation today?: I have a steady place to live Within the past 12 months, did the food you bought not last and you didn't have the money to get more?: Never true Within the past 12 months, did you worry whether your food would run out before you got money to buy more?: Never true Do you have trouble paying for medicines?: No Do you have trouble getting transportation to medical appointments?: No Do you have trouble paying your heating and electricity bill?: No Do you have trouble taking care of your child, family member or friend?: No Do you have trouble with day-to-day activities such as bathing, preparing meals, shopping, managing finances, etc.?: No Are you currently unemployed and looking for a job?: No Are you interested in more education?: No Currently or been in a relationship where the following occur: no concerns reported THRIVE Score: 0 AUDIT C Alcohol Use Questionnaire (AUDIT-C) 1. How often do you have a drink containing alcohol?: Never Total Score: 0 ROLAND-7 AMB Questionnaire ROLAND-7 Date ROLAND - 7 assessed: 05/12/23 Feeling nervous, anxious, or on edge: 0 = Not at all Not being able to stop or control worryin = Not at all Worrying too much about different things: 0 = Not at all Trouble relaxin = Not at all Being so restless that it is hard to sit still: 0 = Not at all Becoming easily annoyed or irritable: 0 = Not at all Feeling afraid as if something awful might happen: 0 = Not at all Total ROLAND-7 score (0-4 normal; 5-9 mild; 10-14 moderate; 15-21 severe): 0 Source: Developed by Drs. Stephen Baer, Marialuisa Bailey, Bishnu Beltran and colleagues, with an educational vivienne from [employer]. Physical exam (Primary Care) BMI result Body Mass Index 25.2 Tobacco/Smoking Status: Tobacco use Status Tobacco use date assessed 03/03/23 03/03/23 14:27 Patient Tobacco Use Status Never used Tobacco 03/03/23 14:27 e-Cigarette/Vaping Use Never Used 03/03/23 14:27 Depression Screening Interpretation: Negative Thrive Assessment: Date of Thrive Assessment Date Thrive assessed 05/22/22 03/03/23 14:27 Currently or been in a relationship where the following occur: no concerns reported Const General: alert; No acute distress Eyes Conjunctivae: conjunctivae normal Resp Auscultation: clear to auscultation bilaterally Cardio Rate: regular rate Rhythm: regular rhythm GI Inspection: Yes normal to inspection Extrem General: Yes normal to inspection and No edema Assessment and Plan Assessment & Plan (1) Benign essential HTN: Code(s): I10 - Essential (primary) hypertension Plan: Presently on lisinopril 40 mg once a day hydrochlorothiazide 12.5 mg once a day, Continue with blood pressure medication. Decrease salt intake and exercise. continue to montor BP for now. Patient seems to be getting that the blood pressure going down at home. (2) Benign prostate hyperplasia: Code(s): N40.0 - Benign prostatic hyperplasia without lower urinary tract symptoms Plan: Continue with finasteride 5 mg once a day (3) Hypercholesterolemia: Code(s): E78.00 - Pure hypercholesterolemia, unspecified Plan: Avoid fried foods, chicken skin, eggs, butter margarine, pastries and meat. Be it pork or beef they have a lot of cholesterol LDL goal of less than 130 and triglyceride of less than 150. Patient on pravastatin 20 mg once a day (4) GERD (gastroesophageal reflux disease): Code(s): K21.9 - Gastro-esophageal reflux disease without esophagitis Plan: on omeprazole , Avoid the foods that causes that usually spicy foods, tomato products, juices, coffee, soda and foods that your sensitive to. After eating do not lie down, allow 3-4 hours before in lie down. And keep the head of bed above 30 degrees to avoid the acid from going up. Orders: Orders Free T4 (Free Thyroxine) 3 Months I10 - Essential (primary) hypertension Vitamin B12 and Folate 3 Months I10 - Essential (primary) hypertension Complete Blood Count Auto Diff 3 Months I10 - Essential (primary) hypertension Comprehensive Met. Panel 3 Months I10 - Essential (primary) hypertension Thyroid Stimulating Hormone 3 Months I10 - Essential (primary) hypertension Lipid Panel 3 Months E78.00 - Pure hypercholesterolemia, unspecified, I10 - Essential (primary) hypertension Medications: Refilled hydrochlorothiazide 12.5 mg PO QAM 30 tabs 4RF I10 - Essential (primary) hypertension Coding Level of Care Code Est Pt Level 4 (96213) Diagnoses Benign essential HTN I10 Benign prostate hyperplasia N40.0 Hypercholesterolemia E78.00 GERD (gastroesophageal reflux disease) K21.9
[2023-05-12 14:26] VITALS: BP 160/86; PULSE 80; O2SAT 98; BMI 25.2
[2023-05-12 14:32] VITALS: BP 140/70
== END 2023-05-12 14:44 | disposition home or self-care (01) ==
PROVIDERS: PCP Internal Medicine; Visit Provider Internal Medicine
DX: I10 Essential (primary) hypertension (principal); N40.0 Benign prostatic hyperplasia without lower urinary tract symptoms; E78.00 Pure hypercholesterolemia, unspecified; K21.9 Gastro-esophageal reflux disease without esophagitis
CPT/HCPCS: 99214

== ENCOUNTER 2023-06-20 13:19 | Outpatient (AMB) | payer MEDICARE, SELFPAY ==
--- NOTE | 2023-06-20 13:22 | MHC.OFFVIS ---
Intake Vital Signs 06/20/23 13:23 Height 5 ft 8 in Weight 165 lb BMI 25.1 BP 136/70 Blood Pressure Location Rt brachial Position Sitting Respiration 16 Pulse 89 Pulse Source Pulse Oximeter Pulse Oximetry (%) 97 Oxygen Delivery Method Room Air Intake Visit Reasons: 3m follow up Dysarthria/Anarthria-CONF Intake Note: Pt presents tot he office for a 3 month follow up for dysarthria. Sustainable Development Policy Analyst Required: No Allergies No Known Allergies Allergy (Mild, Verified 06/20/23 13:22) NONE HPI HPI Comments History of Present Illness Details 77y/o right handed male comes for follow up of dysarthria .He did not notice change with sinemet. Speech therapy helped. He is speaking slower and is conscious of pronouncing his words clearly.He denies any memory issues. He started noticing slurring of speech about 4 years ago and has progressed since. He denies any word finding difficulties or problems comprehending , no troubles reading or writing. He denies any swallowing issues. He has gait issues - no falls , feels off balance . patient has cervical spinal stenosis, twyla knee replacements etc. He denies any heavy alcohol uses. He denies family h/o speech disturbance. He denies any involuntary movements He denies any memory problems .He has occasional diplopia, no vertigo . No family h/o dysarthria or cerebellar issues. [facility] Medical History Arthritis Benign essential HTN Benign prostate hyperplasia Cancer Cerebellar atrophy GERD (gastroesophageal reflux disease) Habitual snoring Hypercholesterolemia LFT elevation Myelopathy Pre-op evaluation Surgical History H/O shoulder surgery H/O eye surgery History of knee replacement History of colonoscopy H/O medial meniscus repair of left knee Family History Father No problems noted. Mother No problems noted. 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 Cognitive needs: No Hearing needs: No Vision needs: Yes (glasses) Review of Systems Neuro Reports Abnormal speech present Physical Exam Vital Signs: Last Vital Signs Pulse 89 06/20/23 13:23 Resp 16 06/20/23 13:23 BP 136/70 06/20/23 13:23 Pulse Ox 97 06/20/23 13:23 Oxygen Delivery Method Room Air 06/20/23 13:23 BMI result Body Mass Index 25.1 Const Orientation/consciousness: patient oriented x3 Neuro Other: Dysarthria Finger nose- bilateral past pointing and dysmetria Unable to do tandem Severely decreased blink General: patient oriented x3, tone normal, moves all extremities and no focal motor deficits Cranial nerves: Yes Facial sensation intact/muscles of mastication intact, Yes Bilaterally intact EOM present, Yes Nystagmus not present, Yes Normal facial strength present, Yes Midline tongue present, Yes Normal gag reflex present and Yes Symmetric palate elevation present Cognition (Neuro): normal cognition Speech: Abnormal speech present Gait exam (Neuro): Normal gait present Motor exam (neuro): 5/5 motor strength present throughout and Normal motor muscle tone present throughout Psych Appearance: grossly normal Assessment & Plan Assessment & Plan (1) Dysarthria: Comment: MRI brain February 2022No acute intracranial abnormality. No infarct, mass, or extra-axial fluid collection. Stable enlargement of the left temporal horn. Redemonstration of disproportionate cerebellar volume loss. Code(s): R47.1 - Dysarthria and anarthria (2) Cerebellar atrophy: Comment: ? 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
[2023-06-20 13:23] VITALS: BP 136/70; PULSE 89; RESP 16; O2SAT 97; BMI 25.1
== END 2023-06-20 13:45 | disposition home or self-care (01) ==
PROVIDERS: PCP Internal Medicine; Visit Provider Psychiatry & Neurology Neurology
DX: R47.1 Dysarthria and anarthria (principal); G31.9 Degenerative disease of nervous system, unspecified; M48.02 Spinal stenosis, cervical region
CPT/HCPCS: 99214

== ENCOUNTER → 2023-06-20 13:19 | Outpatient (BNVA) | payer MEDICARE, SELFPAY | PROVIDERS: PCP Internal Medicine; Visit Provider Psychiatry & Neurology Neurology | DX: G31.9 Degenerative disease of nervous system, unspecified (principal); R47.1 Dysarthria and anarthria; M48.02 Spinal stenosis, cervical region | CPT/HCPCS: 99212 ==

== ENCOUNTER 2023-08-08 10:56 | Outpatient (REF) | payer MEDICARE, SELFPAY ==
[2023-08-08 11:08] LABS: MANUAL DIFF FLAG NO
[2023-08-08 11:58] LABS: Basophils Percent Auto 0.5 % (0-2); Eosinophils Absolute Auto 0.2 X10*3/uL (0.0-0.4); Eosinophils Percent Auto 2.5 % (0-4); Hematocrit 42.5 % (42.0-52.0); Hemoglobin 14.4 g/dl (14.0-18.0); Imm Gran Abs Auto 0.02 X10*3/uL (0.00-0.03); Imm Gran Pct Auto 0.3 % (0.0-0.4); Lymphocytes Absolute Auto 1.3 X10*3/uL (1.2-4.9); Lymphocytes Percent Auto 21.6 % (20-40); Mean Corpuscular HGB Conc 33.9 g/dl (31.0-36.0); Mean Corpuscular Hemoglobin 31.6 pg (27.0-33.0); Mean Corpuscular Volume 93.4 fL (80.0-98.0); Mean Platelet Volume 10.2 fL (9.4-12.4); Monocytes Absolute Auto 0.6 X10*3/uL (0.1-1.2); Monocytes Percent Auto 9.3 % (2-11); Neutrophils Percent Auto 65.8 % (45-73); Platelet Count 262 X10*3/uL (160-400); Red Blood Count 4.55 X10*6/uL (4.60-5.80); Red Cell Distribution Width 12.4 % (11.0-16.0); White Blood Count 6.1 X10*3/uL (4.8-10.8)
[2023-08-08 12:33] LABS: Alanine Aminotransferase 60 U/L (0-40); Albumin Level 4.3 g/dL (3.5-5.0); Alkaline Phosphatase 67 U/L (39-117); Anion Gap 15 (12-20); Aspartate Amino Transferase 34 U/L (5-37); Bilirubin Total 0.6 mg/dL (0.0-1.0); Blood Urea Nitrogen 22 mg/dL (9-16); Calcium 9.7 mg/dL (8.4-10.2); Carbon Dioxide 24 mmol/L (22-29); Chloride 104 mmol/L (96-108); Cholesterol 159 mg/dL (<200); Estimated Glomerular Filt Rate > 60; Glucose Random 151 mg/dL (60-115); HDL Cholesterol 35 mg/dL (>40); LDL Cholesterol Calculated 71 mg/dL (<100); Potassium 4.2 mmol/L (3.3-5.1); Sodium 139 mmol/L (135-145); Total Protein 7.2 g/dL (6.5-8.0); Triglycerides 269 mg/dL (<150)
[2023-08-08 12:56] LABS: Folate 16.2 ng/mL (> or = 4.0); Vitamin B12 909 pg/mL (200-900)
[2023-08-08 12:57] LABS: Free T4 (Free Thyroxine) 0.94 ng/dL (0.71-1.85); Thyroid Stimulating Hormone 2.96 uIU/mL (0.32-4.0)
== END 2023-08-08 10:57 | disposition home or self-care (01) ==
LOC: HO.LAB 10:56
PROVIDERS: PCP Internal Medicine; Visit Provider Internal Medicine
DX: I10 Essential (primary) hypertension (principal); E78.00 Pure hypercholesterolemia, unspecified
CPT/HCPCS: 36415; 80053; 80061; 82607; 82746; 84439; 84443; 85025

== ENCOUNTER 2023-08-15 11:38 | Outpatient (AMB) | payer MEDICARE, SELFPAY ==
[2023-08-15 11:39] VITALS: BP 120/62; PULSE 88; O2SAT 97; BMI 24.5
--- NOTE | 2023-08-15 11:39 | A.OFFPC_ITS ---
Vital Signs 08/15/23 11:39 Height 5 ft 8 in Weight 161 lb 0.2 oz BMI 24.5 BP 120/62 Blood Pressure Location Rt brachial Position Sitting Pulse 88 Pulse Source Pulse Oximeter Pulse Oximetry (%) 97 Oxygen Delivery Method Room Air Intake Visit Reasons: 3 month f/u [employer] Required: No Allergies No Known Allergies Allergy (Mild, Verified 08/15/23 11:39) NONE Medication List - Last Reconciled 08/15/23 by Shaila Alex MD acetaminophen 650 mg (2 x 325 mg) PO Q6H PRN 30 days docusate sodium 100 mg PO BID 7 days finasteride 5 mg PO DAILY hydrochlorothiazide 12.5 mg PO QAM lisinopril 40 mg PO DAILY 90 days multivitamin 1 tab PO DAILY omega 3-vka-jwp-fish oil 100-160-1,000 mg (Fish Oil) caps PO omeprazole 20 mg PO DAILY 90 days pravastatin 20 mg PO DAILY Tobacco use date assessed: 08/15/23 Fall risk assessment: No Falls in past year Last assessed Fall Risk: 08/15/23 Dental Screening Dental Screen Date: 05/12/23 HPI 3 month f/u HPI Details 77-year-old male with hypertension BPH h ypercholesterolemia GERD last seen in 05/13/2023. Review of the notes was seen by Neurology for dysarthria did not notice any change from Sinemet sent for speech therapy MRI in 2021 disproportionate cerebellar volume loss and has just recommended speech exercises. complains of leg pain on walking and at night. discussed that I can feel the pulse on the feet BP at home is good [facility] Medical History Arthritis Benign essential HTN Benign prostate hyperplasia Cancer Cerebellar atrophy GERD (gastroesophageal reflux disease) Habitual snoring Hypercholesterolemia LFT elevation Myelopathy Pre-op evaluation Surgical History H/O shoulder surgery H/O eye surgery History of knee replacement History of colonoscopy H/O medial meniscus repair of left knee Family History Father No problems noted. Mother No problems noted. 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 How often do you have a drink containing alcohol?: Never 3. How often do you have six or more drinks on one occasion?: Never Total Score: 0 ROLAND-7 AMB Questionnaire ROLAND-7 Date ROLAND - 7 assessed: 05/12/23 Source: Developed by Drs. Stephen Baer, Marialuisa Bailey, Bishnu Beltran and colleagues, with an educational vivienne from [employer]. Physical exam (Primary Care) Vital Signs: Last Vital Signs Pulse 88 08/15/23 11:39 BP 120/62 08/15/23 11:39 Pulse Ox 97 08/15/23 11:39 Oxygen Delivery Method Room Air 08/15/23 11:39 BMI result Body Mass Index 24.5 Tobacco/Smoking Status: Tobacco use Status Tobacco use date assessed 08/15/23 08/15/23 11:40 Patient Tobacco Use Status Never used Tobacco 08/15/23 11:40 e-Cigarette/Vaping Use Never Used 08/15/23 11:40 Thrive Assessment: Date of Thrive Assessment Date Thrive assessed 05/12/23 08/15/23 11:40 Const General: alert; No acute distress Eyes Conjunctivae: conjunctivae normal Resp Auscultation: clear to auscultation bilaterally Cardio Rate: regular rate Rhythm: regular rhythm GI Inspection: Yes normal to inspection Extrem General: Yes normal to inspection and No edema Assessment and Plan Assessment & Plan (1) Dysarthria: Comment: MRI brain February 2022No acute intracranial abnormality. No infarct, mass, or extra-axial fluid collection. Stable enlargement of the left temporal horn. Redemonstration of disproportionate cerebellar volume loss. Code(s): R47.1 - Dysarthria and anarthria Plan: Patient has been followed up by Neurology and has recommended speech exercises only. Tried on a medication that did not provide any relief. (2) Benign essential HTN: Code(s): I10 - Essential (primary) hypertension Plan: Continue with blood pressure medication. Decrease salt intake and exercise on lisinopril 40 mg once a day hydrochlorothiazide 12.5 mg once a day (3) Benign prostate hyperplasia: Code(s): N40.0 - Benign prostatic hyperplasia without lower urinary tract symptoms Plan: Continue with finasteride 5 mg once a day (4) Hypercholesterolemia: Code(s): E78.00 - Pure hypercholesterolemia, unspecified Plan: Avoid fried foods, chicken skin, eggs, butter margarine, pastries and meat. Be it pork or beef they have a lot of cholesterol LDL goal of less than 130 and triglyceride of less than 150. On pravastatin 20 mg once a day . Triglyceride remains to be elevated (5) GERD (gastroesophageal reflux disease): Code(s): K21.9 - Gastro-esophageal reflux disease without esophagitis Plan: Avoid the foods that causes that usually spicy foods, tomato products, juices, coffee, soda and foods that your sensitive to. After eating do not lie down, allow 3-4 hours before in lie down. And keep the head of bed above 30 degrees to avoid the acid from going up. Orders: Orders Complete Blood Count Auto Diff 6 Months E78.00 - Pure hypercholesterolemia, unspecified Hemoglobin A1c 6 Months E78.00 - Pure hypercholesterolemia, unspecified Thyroid Stimulating Hormone 6 Months E78.00 - Pure hypercholesterolemia, unspecified Vitamin B12 and Folate 6 Months E78.00 - Pure hypercholesterolemia, unspecified Comprehensive Met. Panel 6 Months E78.00 - Pure hypercholesterolemia, unspecified Free T4 (Free Thyroxine) 6 Months E78.00 - Pure hypercholesterolemia, unspecified Lipid Panel 6 Months E78.00 - Pure hypercholesterolemia, unspecified Medications: Refilled finasteride 5 mg PO DAILY 90 tabs 3RF hydrochlorothiazide 12.5 mg PO QAM 90 tabs 3RF I10 - Essential (primary) hypertension Coding Level of Care Code Est Pt Level 4 (53446) Diagnoses Dysarthria R47.1 Benign essential HTN I10 Benign prostate hyperplasia N40.0 Hypercholesterolemia E78.00 GERD (gastroesophageal reflux disease) K21.9
== END 2023-08-15 12:05 | disposition home or self-care (01) ==
PROVIDERS: PCP Internal Medicine; Visit Provider Internal Medicine
DX: R47.1 Dysarthria and anarthria (principal); I10 Essential (primary) hypertension; N40.0 Benign prostatic hyperplasia without lower urinary tract symptoms; E78.00 Pure hypercholesterolemia, unspecified; K21.9 Gastro-esophageal reflux disease without esophagitis
CPT/HCPCS: 99214

== ENCOUNTER 2024-02-05 07:57 | Outpatient (REF) | payer MEDICARE, SELFPAY ==
[2024-02-05 08:08] LABS: MANUAL DIFF FLAG NO
[2024-02-05 09:07] LABS: Basophils Percent Auto 0.5 % (0-2); Eosinophils Absolute Auto 0.2 X10*3/uL (0.0-0.4); Eosinophils Percent Auto 4.1 % (0-4); Hematocrit 43.9 % (42.0-52.0); Hemoglobin 14.9 g/dl (14.0-18.0); Imm Gran Abs Auto 0.02 X10*3/uL (0.00-0.03); Imm Gran Pct Auto 0.4 % (0.0-0.4); Lymphocytes Absolute Auto 1.5 X10*3/uL (1.2-4.9); Lymphocytes Percent Auto 26.1 % (20-40); Mean Corpuscular HGB Conc 33.9 g/dl (31.0-36.0); Mean Corpuscular Hemoglobin 31.5 pg (27.0-33.0); Mean Corpuscular Volume 92.8 fL (80.0-98.0); Mean Platelet Volume 9.8 fL (9.4-12.4); Monocytes Absolute Auto 0.7 X10*3/uL (0.1-1.2); Monocytes Percent Auto 11.7 % (2-11); Neutrophils Absolute Auto 3.2 x10*3/uL (2.0-8.3); Neutrophils Percent Auto 57.2 % (45-73); Platelet Count 266 X10*3/uL (160-400); Red Blood Count 4.73 X10*6/uL (4.60-5.80); Red Cell Distribution Width 12.9 % (11.0-16.0); White Blood Count 5.6 X10*3/uL (4.8-10.8)
[2024-02-05 09:26] LABS: Estimated Average Glucose 117 mg/dL; Hemoglobin A1C 155.6779 umol/L; Hemoglobin A1c % 5.7 % (<6.0); Total Hemoglobin (HGBA1C) 3987.6685 umol/L
[2024-02-05 09:42] LABS: Alanine Aminotransferase 57 U/L (0-40); Albumin Level 4.5 g/dL (3.5-5.0); Alkaline Phosphatase 64 U/L (39-117); Anion Gap 10 (12-20); Aspartate Amino Transferase 39 U/L (5-37); Bilirubin Total 0.7 mg/dL (0.0-1.0); Blood Urea Nitrogen 28 mg/dL (9-16); Calcium 9.6 mg/dL (8.4-10.2); Carbon Dioxide 29 mmol/L (22-29); Chloride 106 mmol/L (96-108); Cholesterol 171 mg/dL (<200); Estimated Glomerular Filt Rate 54; Glucose Random 94 mg/dL (60-115); HDL Cholesterol 43 mg/dL (>40); LDL Cholesterol Calculated 107 mg/dL (<100); Potassium 4.3 mmol/L (3.3-5.1); Sodium 141 mmol/L (135-145); Total Protein 7.2 g/dL (6.5-8.0); Triglycerides 105 mg/dL (<150)
[2024-02-05 10:02] LABS: Free T4 (Free Thyroxine) 0.97 ng/dL (0.71-1.85); Thyroid Stimulating Hormone 4.21 uIU/mL (0.32-4.0)
[2024-02-05 10:07] LABS: Vitamin B12 891 pg/mL (200-900)
== END 2024-02-05 07:58 | disposition home or self-care (01) ==
LOC: HO.LAB 07:57
PROVIDERS: PCP Internal Medicine; Visit Provider Internal Medicine
DX: E78.00 Pure hypercholesterolemia, unspecified (principal); Z13.1 Encounter for screening for diabetes mellitus
CPT/HCPCS: 36415; 80053; 80061; 82607; 82746; 83036; 84439; 84443; 85025

== ENCOUNTER 2024-02-13 10:49 | Outpatient (AMB) | payer MEDICARE, SELFPAY ==
[2024-02-13 10:57] VITALS: BP 138/76; PULSE 79; O2SAT 98; BMI 24.2
--- NOTE | 2024-02-13 10:57 | A.OFFVIS_ITS ---
Intake Vital Signs 02/13/24 10:57 Height 5 ft 8 in Weight 159 lb BMI 24.2 BP 138/76 Blood Pressure Location Lt brachial Position Sitting Pulse 79 Pulse Source Pulse Oximeter Pulse Oximetry (%) 98 Oxygen Delivery Method Room Air Intake Visit Reasons: SAWV Allergies No Known Allergies Allergy (Mild, Verified 02/13/24 10:58) NONE Medication List - Last Reconciled 02/13/24 by Shalia Alex MD acetaminophen 650 mg (2 x 325 mg) PO Q6H PRN 30 days curcumin-phosphatidylcholine mg PO finasteride 5 mg PO DAILY hydrochlorothiazide 12.5 mg PO QAM lisinopril 40 mg PO DAILY 90 days multivitamin 1 tab PO DAILY omega 6-ajw-etb-fish oil 100-160-1,000 mg (Fish Oil) caps PO omeprazole 20 mg PO DAILY 90 days pravastatin 20 mg PO DAILY turmeric mg PO HPI SAWV HPI Details 78-year-old male with a history of hyper tension BPH hypercholesterolemia GERD last seen in July 2023. Patient is here for an annual well visit. Last colon test was done in 2018. Neurology Dr. Moe, dermatology [place] [facility], Orthopedics Dr. Mendez, urology [facility] Urology cardiology [facility], neurosurgery [facility] neurosurgery noted weight loss but apetitte good.vertigo- BPV. occ cough. states has frequency at night - advised to hold water 2-3 hours before sleep. asking aboiut the dysrthria and seeing neurology declined healthcare proxy form [facility] Medical History Arthritis Benign essential HTN Benign prostate hyperplasia Cancer Cerebellar atrophy GERD (gastroesophageal reflux disease) Habitual snoring Hypercholesterolemia LFT elevation Myelopathy Pre-op evaluation Surgical History H/O shoulder surgery H/O eye surgery History of knee replacement History of colonoscopy H/O medial meniscus repair of left knee Family History Father No problems noted. Mother No problems noted. 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 Cognitive needs: No Hearing needs: No Vision needs: Yes (glasses) Questionnaire Medicare Wellness Checkup [age] What gender do you identify with?: male During the past 4 weeks, how much have you been bothered by emotional problems such as feeling anxious, depressed, irritable, sad or downhearted, and blue?: not at all During the past 4 weeks, has your physical & emotional health limited your social activities with family, friends, neighbors, or groups?: not at all During the past 4 weeks, how much bodily pain have you generally had?: mild pain During the past 4 weeks, was someone available to help you if you needed & wanted help?: no, not at all During the past 4 weeks, what was the hardest physical activity you could do for at least 2 minutes?: light Can you get to places out of walking distance without help? (For eg., can you travel alone on buses, taxis or drive your car?): Yes Can you go shopping for groceries or clothes without someone's help?: Yes Can you prepare your own meals?: Yes Can you do your housework without help?: Yes Because of any health problems, do you need the help of another person with your personal care needs such as eating, bathing, dressing or getting around the house?: No Can you handle your own money without help?: Yes During the past 4 weeks, how would you rate your health in general?: very good During the past 4 weeks how have things been going for you?: very well; could hardly better Are you having difficulties driving your car?: no Do you always fasten your seat belt when you are in a car?: yes, usually During past 4 weeks, have you been bothered by the following: never: Falling or dizzy when standing up, Sexual problems?, Trouble eating well?, Teeth or denture problems? and Problems using the telephone? and sometimes: Tiredness or fatigue? Have you fallen 2 or more times in the past year?: No Are you afraid of falling?: No Are you a smoker?: no During the past 4 weeks, how many drinks of wine, beer, or other alcoholic beverages did you have?: no alcohol at all Do you exercise for about 20 minutes 3 or more times a week?: no, I usually do not exercise this much Have you been given information to help with the following?: yes: Keeping track of your medications? and no: Hazards in your house that might hurt you? How often do you have trouble taking medicines the way you have been told to t hien them?: I always take medicine as prescribed How confident are you that you can control & manage most of your health problems?: very confident What is your race?: White PHQ-9 Over the last 2 weeks, how often have you been bothered by any of the following problems? 1. Little interest or pleasure in doing things: not at all 2. Feeling down, depressed, or hopeless: not at all 3. Trouble falling or staying asleep, or sleeping too much: not at all 4. Feeling tired or having little energy: several days 5. Poor appetite or overeating: not at all 6. Feeling bad about yourself - or that you are a failure or have let yourself or your family down: not at all 7. Trouble concentrating on things, such as reading the newspaper or watching television: not at all 8. Moving or speaking so slowly that other people could have noticed. Or the opposite - being so fidgety or restless that you have been moving around a lot more than usual: not at all 9. Thoughts that you would be better off or of hurting yourself in some way: not at all Total score: 1 Depression Screening Interpretation: Negative Depression Screening Done: Yes 12646 - PHQ-9 Billing: Yes Source: Developed by Drs. Stephen Baer, Marialuisa Bailey, Bishnu Beltran and colleagues, with an educational vivienne from [employer]. Review of Systems Const Denies poor appetite and Denies weakness Eyes Denies no additional complaints ENT Reports Normal hearing present, Denies dizziness, Denies nasal congestion, Denies tinnitus and Denies sore throat Card Denies chest pain, Denies syncope, Denies rapid heart rate and Denies dyspnea Resp Denies cough and Denies dyspnea GI Denies change in stool character, Reports constipation, Denies diarrhea, Denies nausea and Denies vomiting Denies dysuria and Denies urinary frequency Neuro Reports Normal hearing present, Denies confusion, Denies dizziness, Denies syncope and Denies weakness Psych Denies confusion Physical Exam Vital Signs: Last Vital Signs Pulse 79 02/13/24 10:57 BP 138/76 02/13/24 10:57 Pulse Ox 98 02/13/24 10:57 Oxygen Delivery Method Room Air 02/13/24 10:57 BMI result Body Mass Index 24.2 Const General: No confusion Orientation/consciousness: No confusion HEENT Head: Yes normocephalic Ears: external ears normal and TM's normal bilaterally Face and sinus: Yes normal facial exam Mouth: moist mucous membranes Throat: Yes tonsils normal Eyes Conjunctivae: conjunctivae normal Pupils: Equal, round and reactive pupils present and Pupil accommodation reflex normal Direct Ophthalmoscopy: normal light reflex Neck Neck: No lymphadenopathy Thyroid: Thyroid normal Chest Chest palpation & inspection: normal inspection of the chest Resp Effort & Inspection: normal respiratory effort and no audible wheezes Auscultation: clear to auscultation bilaterally, no crackles, no wheezes and lung sounds not diminished Cardio Rate: regular rate Rhythm: regular rhythm Peripheral pulses: radial pulses present and dorsalis pedis present GI Other: guaiac negative, prostate mild enlarged Palpation (GI): no masses Auscultation: normal bowel sounds and normoactive bowel sounds Male General Exam: Yes normal external exam Skin General skin exam: no rashes or lesions noted Rashes: no rashes Neuro General: No confusion Cranial nerves: Yes Equal, round and reactive pupils present and Yes Normal hearing present Cognition (Neuro): normal cognition Gait exam (Neuro): Normal gait present Motor exam (neuro): 5/5 motor strength present throughout Deep tendon reflexes (DTR's): Right brachioradialis reflex intensity grade: 2+, Left brachioradialis reflex intensity grade: 2+, Right patellar reflex intensity grade: 2+ and Left patellar reflex intensity grade: 2+ Extrem General: No edema Assessment & Plan Assessment & Plan (1) Medicare annual wellness visit, subsequent: Code(s): Z00.00 - Encounter for general adult medical examination without abnormal findings Plan: Patient is advised to eat healthy, keep well hydrated, keep active and have adequate sleep. (2) Benign essential HTN: Code(s): I10 - Essential (primary) hypertension Plan: Continue with blood pressure medication. Decrease salt intake and exercise on lisinopril 40 mg once a day and hydrochlorothiazide 12.5 mg once a day (3) Hypercholesterolemia: Code(s): E78.00 - Pure hypercholesterolemia, unspecified Plan: Avoid fried foods, chicken skin, eggs, butter margarine, pastries and meat. Be it pork or beef they have a lot of cholesterol LDL goal of less than 130 and triglyceride of less than 150 (4) Impaired glucose tolerance: Code(s): R73.02 - Impaired glucose tolerance (oral) Plan: Decrease the amount of carbohydrate intake, pasta, bread, rice and potatoes are all sugar and that is aside from all the sweet stuff, remember that fruits are good but they are Sweet also. (5) GERD (gastroesophageal reflux disease): Code(s): K21.9 - Gastro-esophageal reflux disease without esophagitis Qualifiers: Esophagitis presence: without esophagitis Qualified Code(s): K21.9 - Gastro-esophageal reflux disease without esophagitis Plan: Avoid the foods that causes that usually spicy foods, tomato products, juices, coffee, soda and foods that your sensitive to. After eating do not lie down, allow 3-4 hours before in lie down. And keep the head of bed above 30 degrees to avoid the acid from going up. (6) Benign prostate hyperplasia: Code(s): N40.0 - Benign prostatic hyperplasia without lower urinary tract symptoms Qualifiers: Lower urinary tract symptom presence: symptoms present Lower urinary tract symptom detail: urinary frequency Qualified Code(s): N40.1 - Benign prostatic hyperplasia with lower urinary tract symptoms; R35.0 - Frequency of micturition Plan: Presently on finasteride Orders: Orders Hemoglobin A1c Today R73.02 - Impaired glucose tolerance (oral) Comprehensive Met. Panel Today R73.02 - Impaired glucose tolerance (oral) Thyroid Stimulating Hormone Today R73.02 - Impaired glucose tolerance (oral) Free T4 (Free Thyroxine) Today R73.02 - Impaired glucose tolerance (oral) Quality Reporting (2019) Depression/Bipolar (159/160/161/177) PHQ-9: Total score: 1 Coding Level of Care Code Medicare Subsequent (G0439) Diagnoses Medicare annual wellness visit, subsequent Z00.00 Benign essential HTN I10 Hypercholesterolemia E78.00 Impaired glucose tolerance R73.02 Gastroesophageal reflux disease without esophagitis K21.9 Esophagitis presence: without esophagitis Benign prostatic hyperplasia with urinary frequency N40.1; R35.0 Lower urinary tract symptom presence: symptoms present Lower urinary tract symptom detail: urinary frequency Additional Codes PHQ-9 - 75694 - PHQ-9 Billing: Yes ([id number])
--- NOTE | 2024-02-13 10:57 | MHC.PC.OV ---
Intake Visit Reasons: SAWV Allergies No Known Allergies Allergy (Mild, Verified 08/15/23 11:39) NONE Tobacco use date assessed: 08/15/23 Dental Screening Dental Screen Date: 05/12/23 [facility] Medical History Arthritis Benign essential HTN Benign prostate hyperplasia Cancer Cerebellar atrophy GERD (gastroesophageal reflux disease) Habitual snoring Hypercholesterolemia LFT elevation Myelopathy Pre-op evaluation Surgical History H/O shoulder surgery H/O eye surgery History of knee replacement History of colonoscopy H/O medial meniscus repair of left knee Family History Father No problems noted. Mother No problems noted. 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 Stephen Baer, Marialuisa Bailey, Bishnu Beltran and colleagues, with an educational vivienne from [employer]. Physical exam (Primary Care) Tobacco/Smoking Status: Tobacco use Status Tobacco use date assessed 08/15/23 08/15/23 11:40 Patient Tobacco Use Status Never used Tobacco 08/15/23 11:40 e-Cigarette/Vaping Use Never Used 08/15/23 11:40 Thrive Assessment: Date of Thrive Assessment Date Thrive assessed 05/12/23 08/15/23 11:40 Coding
== END 2024-02-13 11:43 | disposition home or self-care (01) ==
PROVIDERS: PCP Internal Medicine; Visit Provider Internal Medicine
DX: Z00.00 Encounter for general adult medical examination without abnormal findings (principal); I10 Essential (primary) hypertension; E78.00 Pure hypercholesterolemia, unspecified; R73.02 Impaired glucose tolerance (oral); K21.9 Gastro-esophageal reflux disease without esophagitis; N40.1 Benign prostatic hyperplasia with lower urinary tract symptoms; R35.0 Frequency of micturition

== ENCOUNTER → 2024-02-13 10:49 | Outpatient (BNVA) | payer MEDICARE, SELFPAY | PROVIDERS: PCP Internal Medicine; Visit Provider Internal Medicine | DX: Z00.00 Encounter for general adult medical examination without abnormal findings (principal); I10 Essential (primary) hypertension; E78.00 Pure hypercholesterolemia, unspecified; R73.02 Impaired glucose tolerance (oral); K21.9 Gastro-esophageal reflux disease without esophagitis; N40.1 Benign prostatic hyperplasia with lower urinary tract symptoms; R35.0 Frequency of micturition | CPT/HCPCS: 96127 ==

== ENCOUNTER 2024-05-27 08:54 | Outpatient (REF) | payer MEDICARE, SELFPAY ==
[2024-05-27 09:52] LABS: Estimated Average Glucose 117 mg/dL; Hemoglobin A1c % 5.7 % (<6.0); Total Hemoglobin (HGBA1C) 3776.3739 umol/L
[2024-05-27 11:15] LABS: Alkaline Phosphatase 68 U/L (39-117); Anion Gap 12 (12-20); Aspartate Amino Transferase 38 U/L (5-37); Bilirubin Total 0.7 mg/dL (0.0-1.0); Blood Urea Nitrogen 23 mg/dL (9-16); Calcium 9.3 mg/dL (8.4-10.2); Carbon Dioxide 26 mmol/L (22-29); Chloride 108 mmol/L (96-108); Estimated Glomerular Filt Rate 55; Glucose Random 115 mg/dL (60-115); Potassium 4.3 mmol/L (3.3-5.1); Sodium 142 mmol/L (135-145)
[2024-05-27 11:34] LABS: Thyroid Stimulating Hormone 4.07 uIU/mL (0.32-4.0)
[2024-05-27 11:39] LABS: Alanine Aminotransferase 49 U/L (0-40)
== END 2024-05-27 08:55 | disposition home or self-care (01) ==
LOC: HO.LAB 08:54
PROVIDERS: PCP Internal Medicine; Visit Provider Internal Medicine
DX: R73.02 Impaired glucose tolerance (oral) (principal)
CPT/HCPCS: 36415; 80053; 83036; 84439; 84443

== ENCOUNTER 2024-05-28 10:30 | Outpatient (AMB) | payer MEDICARE, SELFPAY ==
--- NOTE | 2024-05-28 10:33 | A.OFFPC_ITS ---
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 Accompanied by: Self / Same As Patient Allergies No Known Allergies Allergy (Mild, Verified 05/28/24 10:34) NONE Medication List - Last Reconciled 05/28/24 by Shaila Alex MD finasteride 5 mg PO DAILY hydrochlorothiazide 12.5 mg PO QAM lisinopril 40 mg PO DAILY 90 days multivitamin 1 tab PO DAILY omega 2-bhh-snv-fish oil 100-160-1,000 mg (Fish Oil) caps PO omeprazole 20 mg PO DAILY 90 days pravastatin 20 mg PO DAILY turmeric mg PO Tobacco use date assessed: 05/28/24 Fall risk assessment: No Falls in past year Last assessed Fall Risk: 05/28/24 Dental Screening Dental Screen Date: 05/28/24 Did you have a dental visit in the last 12 months?: Yes Did you have a dental problem in the last 6 months where you did not have access to dental care?: No PFSH Medical History Cancer Arthritis GERD (gastroesophageal reflux disease) Habitual snoring Cerebellar atrophy Hypercholesterolemia LFT elevation Pre-op evaluation Myelopathy Benign prostate hyperplasia Benign essential HTN Surgical History H/O shoulder surgery H/O eye surgery History of knee replacement History of colonoscopy H/O medial meniscus repair of left knee Family History Father No problems noted. Mother No problems noted. 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 1. Little interest or pleasure in doing things: not at all 2. Feeling down, depressed, or hopeless: not at all 3. Trouble falling or staying asleep, or sleeping too much: not at all 4. Feeling tired or having little energy: not at all 5. Poor appetite or overeating: not at all 6. Feeling bad about yourself - or that you are a failure or have let yourself or your family down: not at all 7. Trouble concentrating on things, such as reading the newspaper or watching television: not at all 8. Moving or speaking so slowly that other people could have noticed. Or the opposite - being so fidgety or restless that you have been moving around a lot more than usual: not at all 9. Thoughts that you would be better off or of hurting yourself in some way: not at all Total score: 0 Source: Developed by Drs. Stephen Baer, Marialuisa Bailey, Bishnu Beltran and colleagues, with an educational vivienne from [employer]. Thrive Questionnaire Date Thrive assessed: 05/28/24 I am a: Patient What is your living situation today?: I have a steady place to live Within the past 12 months, did the food you bought not last and you didn't have the money to get more?: Never true Within the past 12 months, did you worry whether your food would run out before you got money to buy more?: Never true Do you have trouble paying for medicines?: No Do you have trouble getting transportation to medical appointments?: No Do you have trouble paying your heating and electricity bill?: No Do you have trouble taking care of your child, family member or friend?: No Do you have trouble with day-to-day activities such as bathing, preparing meals, shopping, managing finances, etc.?: No Are you currently unemployed and looking for a job?: No Are you interested in more education?: No THRIVE Score: 0 AUDIT C Alcohol Use Questionnaire (AUDIT-C) 1. How often do you have a drink containing alcohol?: Never 3. How often do you have six or more drinks on one occasion?: Never Total Score: 0 ROLAND-7 AMB Questionnaire ROLAND-7 Date ROLAND - 7 assessed: 05/28/24 Feeling nervous, anxious, or on edge: 0 = Not at all Not being able to stop or control worryin = Not at all Worrying too much about different things: 0 = Not at all Trouble relaxin = Not at all Being so restless that it is hard to sit still: 0 = Not at all Becoming easily annoyed or irritable: 0 = Not at all Feeling afraid as if something awful might happen: 0 = Not at all Total ROLAND-7 score (0-4 normal; 5-9 mild; 10-14 moderate; 15-21 severe): 0 Source: Developed by Drs. Stephen Baer, Marialuisa Bailey, Bishnu Beltran and colleagues, with an educational vivienne from [employer]. Physical exam (Primary Care) Vital Signs: Last Vital Signs Temp 97.8 F 05/28/24 10:34 Pulse 60 05/28/24 10:34 Resp 16 05/28/24 10:34 BP 136/88 05/28/24 10:34 Pulse Ox 99 05/28/24 10:34 Oxygen Delivery Method Room Air 05/28/24 10:34 BMI result Body Mass Index 24.6 Tobacco/Smoking Status: Tobacco use Status Tobacco use date assessed 05/28/24 05/28/24 10:42 Patient Tobacco Use Status Never used Tobacco 05/28/24 10:34 e-Cigarette/Vaping Use Never Used 05/28/24 10:34 PHQ-9: PHQ-9 Score PHQ-9: Total score 0 05/28/24 10:57 Thrive Assessment: Date of Thrive Assessment Date Thrive assessed 05/28/24 05/28/24 10:42 Const General: alert; No acute distress Eyes Conjunctivae: conjunctivae normal Resp Auscultation: clear to auscultation bilaterally Cardio Rate: regular rate Rhythm: regular rhythm GI Inspection: Yes normal to inspection Extrem General: Yes normal to inspection and No edema Coding Level of Care Code Est Pt Level 4 (97232) Complex EM visit Add On G2211 Diagnoses Impaired glucose tolerance R73.02 Gastroesophageal reflux disease without esophagitis K21.9 Esophagitis presence: without esophagitis Benign essential HTN I10 Hypercholesterolemia E78.00 Benign prostatic hyperplasia with urinary frequency N40.1; R35.0 Lower urinary tract symptom detail: urinary frequency Lower urinary tract symptom presence: symptoms present TSH elevation R79.89 Assessment & Plan Assessment & Plan (1) Impaired glucose tolerance: Code(s): R73.02 - Impaired glucose tolerance (oral) Category: Medical Plan: Decrease the amount of carbohydrate intake, pasta, bread, rice and potatoes are all sugar and that is aside from all the sweet stuff, remember that fruits are good but they are Sweet also. (2) GERD (gastroesophageal reflux disease): Code(s): K21.9 - Gastro-esophageal reflux disease without esophagitis Category: Medical Qualifiers: Esophagitis presence: without esophagitis Qualified Code(s): K21.9 - Gastro-esophageal reflux disease without esophagitis Plan: Avoid the foods that causes that usually spicy foods, tomato products, juices, coffee, soda and foods that your sensitive to. After eating do not lie down, allow 3-4 hours before in lie down. And keep the head of bed above 30 degrees to avoid the acid from going up. On omeprazole (3) Benign essential HTN: Code(s): I10 - Essential (primary) hypertension Category: Medical Plan: Continue with blood pressure medication. Decrease salt intake and exercise patient on lisinopril 40 mg once a day hydrochlorothiazide 12.5 mg once a day (4) Hypercholesterolemia: Code(s): E78.00 - Pure hypercholesterolemia, unspecified Category: Medical Plan: Avoid fried foods, chicken skin, eggs, butter margarine, pastries and meat. Be it pork or beef they have a lot of cholesterol LDL goal of less than 130 and triglyceride of less than 150. Continue with finasteride (5) Benign prostate hyperplasia: Code(s): N40.0 - Benign prostatic hyperplasia without lower urinary tract symptoms Category: Medical Qualifiers: Lower urinary tract symptom detail: urinary frequency Lower urinary tract symptom presence: symptoms present Qualified Code(s): N40.1 - Benign prostatic hyperplasia with lower urinary tract symptoms; R35.0 - Frequency of micturition Plan: Continue with finasteride (6) TSH elevation: Code(s): R79.89 - Other specified abnormal findings of blood chemistry Category: Medical Plan: Will continue to monitor Plan History of Present Illness The patient is a 78-year-old male presenting with a follow-up for chronic management and review of lab results. He continues with finasteride for benign prostatic hyperplasia, which has been effective. Hypertension is controlled with lisinopril and hydrochlorothiazide. Hypercholesterolemia is managed with pravastatin, with goals for LDL and triglyceride levels being approached. The patient's GERD symptoms are alleviated with regular omeprazole use. The patient also has cervical spinal stenosis and occasional disturbances related to neuralgia, affecting his swallowing and tongue placement but with no recent falls. Blood tests from January indicate impaired glucose tolerance with a fasting blood sugar of 115 mg/dL and a hemoglobin A1c of 5.7%. Liver function remains mildly elevated with subclinical hypothyroidism indicated by a TSH at 4.07. The patient's renal function remains stable with creatinine at 1.27 mg/dL and a GFR around 54-55 mL/min/1.73m?. Health Maintenance - Routine colonoscopy completed in 2018 - Blood work performed on February 04, 2022: normal blood count, electrolytes, and renal function, Hgb A1c 5.7%. - Regular exercise: walking dog twice daily - Dietary recommendations for sugar reduction - Scheduled eye examination in August - Annual well visit scheduled for January with fasting blood test Social History - Exercises by walking the dog twice a day - Consumes sugary snacks occasionally - Reports looser sleep patterns, waking frequently - Watches TV for leisure - Drinks plenty of water and attempts to eat a healthy diet Review of Systems - Endocrine: Reports mild elevation in liver function tests - Neuromuscular: Reports occasional disturbance swallowing and tongue misplacement Physical Exam Results - Labs: Normal blood count, normal electrolytes, normal renal function, Hgb A1c at 5.7%, elevated liver function, TSH at 4.07 - Imaging: Abdominal ultrasound in 2020 with normal liver Plan The management of hypertension remains unchanged with current prescriptions. Cholesterol levels will continue to be addressed with pravastatin, aiming for specified goals. GERD symptoms will be managed with omeprazole, as currently effective. The patient will monitor diet and activity levels to manage glucose tolerance. Liver function tests will be assessed again, considering previous ultrasound results. Subclinical hypothyroidism will require no immediate treatment. Conditions will be reviewed comprehensively in the next planned annual visit with appropriate fasting tests. Patient was informed and verbally consented to the use of an ambient scribe for clinic note documentation during this visit. Discussion Notes I discussed with the patient the current stability in managing chronic conditions, emphasizing the importance of medication adherence, particularly for hypertension and cholesterol. I highlighted the significance of maintaining a balanced diet to manage glucose levels effectively and decrease high sugary snack intake. We discussed the mild thyroid elevation and the decision not to initiate treatment at this time. I re-emphasized the dangers associated with using NSAIDs due to potential renal effects and encouraged the use of topical preparations as needed for neuralgia symptoms. The importance of forthcoming annual exams with fasting labs and overall health maintenance was reiterated. Patient Instructions - Continue current medications as prescribed: finasteride, lisinopril, hydrochlorothiazide, pravastatin, and omeprazole. - Avoid NSAIDs such as Motrin, ibuprofen, Aleve, and Advil. - Monitor and reduce sugar intake, especially with snacks. - Engage in regular exercise with dog walking and activity. - Maintain regular water intake and healthy eating habits. - Attend scheduled appointments, including the annual exam and eye examination in August. - Follow up with any new or worsening symptoms. Orders: Orders Complete Blood Count Auto Diff 7 Months R73.02 - Impaired glucose tolerance (oral) Comprehensive Met. Panel 7 Months R73.02 - Impaired glucose tolerance (oral) Magnesium 7 Months R73.02 - Impaired glucose tolerance (oral) Lipid Panel 7 Months E78.00 - Pure hypercholesterolemia, unspecified, R73.02 - Impaired glucose tolerance (oral) Free T4 (Free Thyroxine) 7 Months R73.02 - Impaired glucose tolerance (oral) Thyroid Stimulating Hormone 7 Months R73.02 - Impaired glucose tolerance (oral) Vitamin B12 and Folate 7 Months R73.02 - Impaired glucose tolerance (oral)
[2024-05-28 10:34] VITALS: BP 136/88; PULSE 60; RESP 16; TEMP 36.6; O2SAT 99; BMI 24.6
== END 2024-05-28 11:10 | disposition home or self-care (01) ==
PROVIDERS: PCP Internal Medicine; Visit Provider Internal Medicine
DX: R73.02 Impaired glucose tolerance (oral) (principal); K21.9 Gastro-esophageal reflux disease without esophagitis; I10 Essential (primary) hypertension; E78.00 Pure hypercholesterolemia, unspecified; N40.1 Benign prostatic hyperplasia with lower urinary tract symptoms; R35.0 Frequency of micturition; R79.89 Other specified abnormal findings of blood chemistry

== ENCOUNTER → 2024-05-28 10:30 | Outpatient (BNVA) | payer MEDICARE, SELFPAY | PROVIDERS: PCP Internal Medicine; Visit Provider Internal Medicine | DX: R73.02 Impaired glucose tolerance (oral) (principal); K21.9 Gastro-esophageal reflux disease without esophagitis; I10 Essential (primary) hypertension; E78.00 Pure hypercholesterolemia, unspecified; N40.1 Benign prostatic hyperplasia with lower urinary tract symptoms; R35.0 Frequency of micturition; R79.89 Other specified abnormal findings of blood chemistry | CPT/HCPCS: 99212 ==

== ENCOUNTER 2024-06-16 09:48 | Outpatient (AMB) | payer MEDICARE, SELFPAY ==
--- NOTE | 2024-06-16 09:49 | A.OFFVIS_ITS ---
Vital Signs 06/16/24 09:50 Height 5 ft 8 in Weight 161 lb BMI 24.5 BP 136/72 Blood Pressure Location Rt brachial Position Sitting Pulse 62 Pulse Source Pulse Oximeter Pulse Oximetry (%) 96 Oxygen Delivery Method Room Air Intake Visit Reasons: 1 yr Follow Up Intake Note: patient following up for Dysarthria and anarthria carbidpa levo trial Allergies No Known Allergies Allergy (Mild, Verified 06/16/24 09:52) NONE HPI Comments Details: 78y/o right handed male comes for follow up of dysarthria .He did not notice change since last visit.Speech therapy helped. He is speaking slower and is conscious of pronouncing his words clearly.He denies any memory issues. He started noticing slurring of speech about 5 years ago and has mildly progressed since. He denies any word finding difficulties or problems comprehending , no troubles reading or writing. He denies any swallowing issues. He has gait issues - no falls , feels off balance . patient has cervical spinal stenosis, twyla knee replacements etc. He denies any heavy alcohol uses. He denies family h/o speech disturbance. He denies any involuntary movements He denies any memory problems .He has occasional diplopia, no vertigo . No family h/o dysarthria or cerebellar issues. [facility] Medical History Cancer Arthritis GERD (gastroesophageal reflux disease) Habitual snoring Cerebellar atrophy Hypercholesterolemia LFT elevation Pre-op evaluation Myelopathy Benign prostate hyperplasia Benign essential HTN Surgical History H/O shoulder surgery H/O eye surgery History of knee replacement History of colonoscopy H/O medial meniscus repair of left knee Family History Father No problems noted. Mother No problems noted. 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 Cognitive needs: No Hearing needs: No Vision needs: Yes (glasses) Review of Systems Neuro Reports Abnormal speech present Physical Exam Vital Signs: Last Vital Signs Pulse 62 06/16/24 09:50 BP 136/72 06/16/24 09:50 Pulse Ox 96 06/16/24 09:50 Oxygen Delivery Method Room Air 06/16/24 09:50 BMI result Body Mass Index 24.5 Const Orientation/consciousness: patient oriented x3 Neuro Other: Dysarthria Finger nose-mild bilateral past pointing and dysmetria Unable to do tandem , mild wide based Severely decreased blink Good extraocular movements General: patient oriented x3, tone normal, moves all extremities and no focal motor deficits Cranial nerves: Yes Facial sensation intact/muscles of mastication intact, Yes Bilaterally intact EOM present, Yes Nystagmus not present, Yes Normal facial strength present, Yes Midline tongue present, Yes Normal gag reflex present and Yes Symmetric palate elevation present Cognition (Neuro): normal cognition Speech: Abnormal speech present Motor exam (neuro): 5/5 motor strength present throughout and Normal motor muscle tone present throughout Psych Appearance: grossly normal Assessment & Plan Assessment & Plan (1) Dysarthria: Comment: MRI brain February 2022No acute intracranial abnormality. No infarct, mass, or extra-axial fluid collection. Stable enlargement of the left temporal horn. Redemonstration of disproportionate cerebellar volume loss. Code(s): R47.1 - Dysarthria and anarthria Category: Medical (2) Cerebellar atrophy: Comment: ? Spinaocerebellar ataxia ? multiple system atrophy Code(s): G31.9 - Degenerative disease of nervous system, unspecified Category: Medical (3) Cervical spinal stenosis: Comment: Neuro surgery February 2022 nonsurgical Code(s): M48.02 - Spinal stenosis, cervical region Category: Medical Plan Discussed the diagnosis and progression SPeech exercises F/U in 1 year Coding Level of Care Code Est Pt Level 4 (41665) Diagnoses Dysarthria R47.1 Cerebellar atrophy G31.9 Cervical spinal stenosis M48.02
[2024-06-16 09:50] VITALS: BP 136/72; PULSE 62; O2SAT 96; BMI 24.5
== END 2024-06-16 10:27 | disposition home or self-care (01) ==
LOC: HO.HSMS 09:49
PROVIDERS: PCP Internal Medicine; Visit Provider Psychiatry & Neurology Neurology
DX: R47.1 Dysarthria and anarthria (principal); G31.9 Degenerative disease of nervous system, unspecified; M48.02 Spinal stenosis, cervical region
CPT/HCPCS: 99214

== ENCOUNTER → 2024-06-16 09:48 | Outpatient (BNVA) | payer MEDICARE, SELFPAY | PROVIDERS: PCP Internal Medicine; Visit Provider Psychiatry & Neurology Neurology | DX: R47.1 Dysarthria and anarthria (principal); M48.02 Spinal stenosis, cervical region; G31.9 Degenerative disease of nervous system, unspecified | CPT/HCPCS: 99212 ==

== ENCOUNTER 2025-02-14 07:37 | Outpatient (REF) | payer MEDICARE, SELFPAY ==
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
[2025-02-14 07:50] LABS: MANUAL DIFF FLAG NO
[2025-02-14 08:28] LABS: Hematocrit 48.8 % (42.0-52.0); Hemoglobin 16.1 g/dl (14.0-18.0); Imm Gran Abs Auto 0.02 X10*3/uL (0.00-0.03); Imm Gran Pct Auto 0.3 % (0.0-0.4); Lymphocytes Absolute Auto 1.4 X10*3/uL (1.2-4.9); Mean Corpuscular HGB Conc 33.0 g/dl (31.0-36.0); Mean Corpuscular Hemoglobin 30.9 pg (27.0-33.0); Mean Corpuscular Volume 93.7 fL (80.0-98.0); NRBC Abs Auto 0.000 X10*3/uL (0.0-0.012); NRBC Pct Auto 0.0 /100WBC (0.0-0.2); Platelet Count 286 X10*3/uL (160-400); Red Blood Count 5.21 X10*6/uL (4.60-5.80); White Blood Count 5.8 X10*3/uL (4.8-10.8)
[2025-02-14 08:56] LABS: Alanine Aminotransferase 46 U/L (0-40); Albumin Level 4.6 g/dL (3.5-5.0); Alkaline Phosphatase 73 U/L (39-117); Anion Gap 13 (12-20); Aspartate Amino Transferase 37 U/L (5-37); Blood Urea Nitrogen 25 mg/dL (9-16); Calcium 9.6 mg/dL (8.4-10.2); Carbon Dioxide 27 mmol/L (22-29); Chloride 107 mmol/L (96-108); Cholesterol 164 mg/dL (<200); Estimated Glomerular Filt Rate 60; HDL Cholesterol 45 mg/dL (>40); Magnesium 2.2 mg/dL (1.6-2.6); Potassium 4.2 mmol/L (3.3-5.1); Sodium 143 mmol/L (135-145); Total Protein 7.1 g/dL (6.5-8.0); Triglycerides 114 mg/dL (<150)
[2025-02-14 09:11] LABS: Free T4 (Free Thyroxine) 0.91 ng/dL (0.71-1.85); Thyroid Stimulating Hormone 4.99 uIU/mL (0.32-4.0)
[2025-02-14 09:27] LABS: Folate 15.2 ng/mL (> or = 4.0); Vitamin B12 902 pg/mL (200-900)
== END 2025-02-14 07:38 | disposition home or self-care (01) ==
LOC: HO.LAB 07:37
PROVIDERS: PCP Internal Medicine; Visit Provider Internal Medicine
DX: R73.02 Impaired glucose tolerance (oral) (principal); E78.00 Pure hypercholesterolemia, unspecified
CPT/HCPCS: 36415; 80053; 80061; 82607; 82746; 83735; 84439; 84443; 85025

== ENCOUNTER 2025-02-15 10:16 | Outpatient (AMB) | payer MEDICARE, SELFPAY ==
[2025-02-15 10:19] VITALS: BP 132/74; PULSE 69; TEMP 36.4; O2SAT 99; BMI 23.6
--- NOTE | 2025-02-15 10:19 | A.OFFVIS_ITS ---
Intake Vital Signs 02/15/25 10:19 Height 5 ft 8 in Weight 155 lb BMI 23.6 BP 132/74 Blood Pressure Location Rt brachial Position Sitting Pulse 69 Pulse Source Pulse Oximeter Temp 97.5 F Temp Source Temporal Artery Scan Pulse Oximetry (%) 99 Oxygen Delivery Method Room Air Intake Visit Reasons: [facility] G0439 Allergies No Known Allergies Allergy (Mild, Verified 02/15/25 10:19) NONE Medication List - Last Reconciled 02/15/25 by Shaila Alex MD finasteride 5 mg PO DAILY lisinopril 40 mg PO DAILY 90 days multivitamin 1 tab PO DAILY omega [id number]-pmj-fish oil 100-160-1,000 mg (Fish Oil) caps PO omeprazole 20 mg PO DAILY 90 days pravastatin 20 mg PO DAILY turmeric mg PO HPI [facility] G0439 HPI Details [facility] dermatology, neurology Dr. Kinney, orthopedics Dr. Mendez, [facility] U[facility] cardiology [facility] neurosurgery gastroenterology Dr. Moreland HPI Comments History of Present Illness Details History of Present Illness The patient is an 79 year old individual presenting for an annual well visit. The patient's past medical history is significant for benign prostatic hyperplasia (BPH), hypertension, hypercholesterolemia, spinal stenosis, right shoulder osteoarthritis status post-replacement, impaired glucose tolerance, and a history of retinal detachment. The patient also has a history of cerebellar atrophy and dysarthria, for which the patient follows up with neurology and performs speech exercises; the speech issues are reportedly stable and not worsening. The patient's current medications include finasteride 5 mg for BPH, lisinopril 40 mg for hypertension, omeprazole 20 mg for reflux, and pravastatin for hypercholesterolemia, along with supplements such as a multivitamin, fish oil, and turmeric. Hydrochlorothiazide was previously stopped due to polyuria. The patient reports no medication allergies. The patient follows with multiple specialists including dermatology for a recent skin lesion removal from the left thigh, neurology, orthopedics, urology, cardiology, neurosurgery, and gastroenterology. The patient's last colonoscopy was in 2019. Immunizations are up-to-date, including recent influenza and COVID- 19 vaccines, as well as prior shingles, tetanus, RSV, and pneumonia shots. Health Maintenance - Immunizations: The patient is up-to-da te on shingles, tetanus, RSV, and pneumonia vaccinations. - The patient has received both the infl uenza and COVID-19 vaccines. - Last colonoscopy was in 2019. - Last eye exam was this year. - Digital rectal exam was performed yue [place] this visit. - Lifestyle: The patient was encouraged to remain active and increase hydration. Social History - Substance Use: The patient denies drin esme alcohol and has never smoked cigarettes. - Exercise: The patient is active, uses weights for exercise, and has experienced weight loss as a result. - Nutrition: The patient consumes coffee and was advised to increase water intake due to signs of dehydration on lab work. Results - labs: - CBC (January 2024): Normal blood coun t with no anemia, normal white blood cell count, and normal platelet count. - CMP (January 2024): Normal electrolyt es. - Creatinine: 1.17 mg/dL. - BUN: 25 mg/dL. - Glucose: Normal. - Liver Function Tests: Mildly elevated, which is a chronic finding. - Lipid Panel: LDL cholesterol is 97 mg/ dL. - TSH: Mildly elevated, with recent resu lts of 4.21, 4.07, and 4.99 mIU/L. - Vitamin B12: Normal. - tests and diagnostics: - Colonoscopy (2018): Results not discus sed. - Digital Rectal Exam: Stool guaiac nega tive. [facility] Medical History Cancer Arthritis GERD (gastroesophageal reflux disease) Habitual snoring Cerebellar atrophy Hypercholesterolemia LFT elevation Pre-op evaluation Myelopathy Benign prostate hyperplasia Benign essential HTN Surgical History H/O shoulder surgery H/O eye surgery History of knee replacement History of colonoscopy H/O medial meniscus repair of left knee Family History Father No problems noted. Mother No problems noted. 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 Cognitive needs: No Hearing needs: No Vision needs: Yes (glasses) Questionnaire Medicare Wellness Checkup What is your age?: 79 or older What gender do you identify with?: male During the past 4 weeks, how much have you been bothered by emotional problems such as feeling anxious, depressed, irritable, sad or downhearted, and blue?: not at all During the past 4 weeks, has your physical & emotional health limited your social activities with family, friends, neighbors, or groups?: not at all During the past 4 weeks, how much bodily pain have you generally had?: no pain During the past 4 weeks, was someone available to help you if you needed & wanted help?: yes, as much as I wanted During the past 4 weeks, what was the hardest physical activity you could do for at least 2 minutes?: moderate Can you get to places out of walking distance without help? (For eg., can you travel alone on buses, taxis or drive your car?): Yes Can you go shopping for groceries or clothes without someone's help?: Yes Can you prepare your own meals?: Yes Can you do your housework without help?: Yes Because of any health problems, do you need the help of another person with your personal care needs such as eating, bathing, dressing or getting around the house?: No Can you handle your own money without help?: Yes During the past 4 weeks, how would you rate your health in general?: very good During the past 4 weeks how have things been going for you?: very well; could hardly better Are you having difficulties driving your car?: no Do you always fasten your seat belt when you are in a car?: yes, usually During past 4 weeks, have you been bothered by the following: never: Falling or dizzy when standing up, Sexual problems?, Trouble eating well?, Teeth or denture problems?, Problems using the telephone? and Tiredness or fatigue? Have you fallen 2 or more times in the past year?: No Are you afraid of falling?: No Are you a smoker?: no During the past 4 weeks, how many drinks of wine, beer, or other alcoholic beverages did you have?: no alcohol at all Do you exercise for about 20 minutes 3 or more times a week?: yes, most of the time Have you been given information to help with the following?: yes: Hazards in your house that might hurt you? and yes: Keeping track of your medications? How often do you have trouble taking medicines the way you have been told to take them?: I always take medicine as prescribed How confident are you that you can control & manage most of your health problems?: very confident What is your race?: White PHQ-9 Over the last 2 weeks, how often have you been bothered by any of the following problems? 1. Little interest or pleasure in doing things: not at all 2. Feeling down, depressed, or hopeless: not at all 3. Trouble falling or staying asleep, or sleeping too much: not at all 4. Feeling tired or having little energy: not at all 5. Poor appetite or overeating: not at all 6. Feeling bad about yourself - or that you are a failure or have let yourself or your family down: not at all 7. Trouble concentrating on things, such as reading the newspaper or watching television: not at all 8. Moving or speaking so slowly that other people could have noticed. Or the opposite - being so fidgety or restless that you have been moving around a lot more than usual: not at all 9. Thoughts that you would be better off or of hurting yourself in some way: not at all Total score: 0 Depression Screening Interpretation: Negative Depression Screening Done: Yes 83586 - PHQ-9 Billing: Yes Source: Developed by Drs. tSephen Baer, Marialuisa Bailey, Bishnu Beltran and colleagues, with an educational vivienne from [employer]. Review of Systems Narrative Review of Systems - Constitutional: Reports weight loss. - Denies falls, syncope, dizziness, nausea, vomiting, or fever. - Reports feeling druggy occasionally. - Neurological: Reports stable dysarthria, which is not worsening. - Cardiovascular: Denies paroxysmal nocturnal dyspnea and chest pain. - Gastrointestinal: Reports occasional dysphagia with solid foods like bread, which is not worsening. - Reports heartburn that is controlled with medication. - Reports having a bowel movement every third day. - Denies constipation and hematochezia. - Genitourinary: Reports nocturia, waking up two times per night to urinate. - Denies other urinary problems. - Musculoskeletal: Reports the right shoulder is doing fine. - Skin: Denies any issues with the recent lesion removal site on the leg. Const Denies poor appetite and Denies weakness Eyes Denies no additional complaints ENT Reports Normal hearing present, Denies dizziness, Denies nasal congestion, Denies tinnitus and Denies sore throat Card Denies chest pain, Denies syncope, Denies rapid heart rate and Denies dyspnea Resp Denies cough and Denies dyspnea GI Denies change in stool character, Reports constipation, Denies diarrhea, Denies nausea and Denies vomiting Denies dysuria and Denies urinary frequency Neuro Reports Normal hearing present, Denies confusion, Denies dizziness, Denies syncope and Denies weakness Psych Denies confusion Physical Exam Exam Exam: Physical Exam General: Cooperative, healthy appearing, comfortable, no acute distress and well developed Orientation: Patient oriented x3 Limitations: No limitations Head: Normal to inspection Ears: Hearing grossly normal bilaterally Nose: Normal external nose present Face and sinus: Normal facial exam Eyes: Appearance normal, both eyes and all related structures Neck: Normal visual inspection and Yes full ROM Respiratory: Normal respiratory effort and able to speak in complete sentences. Clear to auscultation bilaterally Cardiovascular: Regular rate and rhythm. Normal S1 and S2 GI: Normal to inspection. Soft to palpation and nontender Skin: Rash on the leg, removed and not infected Neuro: Patient oriented x3 Extremities: Normal to inspection Vital Signs: Last Vital Signs Temp 97.5 F 02/15/25 10:19 Pulse 69 02/15/25 10:19 BP 132/74 02/15/25 10:19 Pulse Ox 99 02/15/25 10:19 Oxygen Delivery Method Room Air 02/15/25 10:19 BMI result Body Mass Index 23.6 Const General: No confusion Orientation/consciousness: No confusion HEENT Head: Yes normocephalic Ears: external ears normal and TM's normal bilaterally Face and sinus: Yes normal facial exam Mouth: moist mucous membranes Throat: Yes tonsils normal Eyes Conjunctivae: conjunctivae normal Pupils: Equal, round and reactive pupils present and Pupil accommodation reflex normal Direct Ophthalmoscopy: normal light reflex Neck Neck: No lymphadenopathy Thyroid: Thyroid normal Chest Chest palpation & inspection: normal inspection of the chest Resp Effort & Inspection: normal respiratory effort and no audible wheezes Auscultation: clear to auscultation bilaterally, no crackles, no wheezes and lung sounds not diminished Cardio Rate: regular rate Rhythm: regular rhythm Peripheral pulses: radial pulses present and dorsalis pedis present GI Other: guaiac negative enlarged prostate Palpation (GI): no masses Auscultation: normal bowel sounds and normoactive bowel sounds Male General Exam: Yes normal external exam Skin General skin exam: no rashes or lesions noted Rashes: no rashes Neuro General: No confusion Cranial nerves: Yes Equal, round and reactive pupils present and Yes Normal hearing present Cognition (Neuro): normal cognition Gait exam (Neuro): Normal gait present Motor exam (neuro): 5/5 motor strength present throughout Deep tendon reflexes (DTR's): Right brachioradialis reflex intensity grade: 2+, Left brachioradialis reflex intensity grade: 2+, Right patellar reflex intensity grade: 2+ and Left patellar reflex intensity grade: 2+ Extrem General: No edema Assessment & Plan Assessment & Plan (1) Medicare annual wellness visit, subsequent: Code(s): Z00.00 - Encounter for general adult medical examination without abnormal findings Plan: Patient is advised to eat healthy, keep well hydrated, keep active and have adequate sleep. (2) Impaired glucose tolerance: Code(s): R73.02 - Impaired glucose tolerance (oral) Plan: Decrease the amount of carbohydrate intake, pasta, bread, rice and potatoes are all sugar and that is aside from all the sweet stuff, remember that fruits are good but they are Sweet also. (3) Hypercholesterolemia: Code(s): E78.00 - Pure hypercholesterolemia, unspecified Plan: Avoid fried foods, chicken skin, eggs, butter margarine, pastries and meat. Be it pork or beef they have a lot of cholesterol LDL goal of less than 130 and triglyceride of less than 150 on pravastatin (4) Benign essential HTN: Code(s): I10 - Essential (primary) hypertension Plan: Continue with blood pressure medication. Decrease salt intake and exercise on lisinopril 40 mg once a day (5) TSH elevation: Code(s): R79.89 - Other specified abnormal findings of blood chemistry Plan: Will just continue to monitor in 3 months (6) GERD (gastroesophageal reflux disease): Code(s): K21.9 - Gastro-esophageal reflux disease without esophagitis Qualifiers: Esophagitis presence: without esophagitis Qualified Code(s): K21.9 - Gastro-esophageal reflux disease without esophagitis Plan: Avoid the foods that causes that usually spicy foods, tomato products, juices, coffee, soda and foods that your sensitive to. After eating do not lie down, allow 3-4 hours before in lie down. And keep the head of bed above 30 degrees to avoid the acid from going up. (7) Benign prostate hyperplasia: Code(s): N40.0 - Benign prostatic hyperplasia without lower urinary tract symptoms Qualifiers: Lower urinary tract symptom detail: urinary frequency Lower urinary tract symptom presence: symptoms present Qualified Code(s): N40.1 - Benign prostatic hyperplasia with lower urinary tract symptoms; R35.0 - Frequency of micturition Plan: Patient on finasteride and continue to follow-up with urology (8) S/P shoulder replacement: Comment: Right shoulder arthroplasty Dr. Mendez July 2022 Code(s): Z96.619 - Presence of unspecified artificial shoulder joint Plan: Continue to be active (9) Cerebellar atrophy: Comment: ? 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 1. Annual Wellness Visit The patient is following for an annual wellness visit. The patient was advised to continue being active and to increase fluid intake to improve hydration. A follow-up visit is recommended in 6 months. 2. Hypertension The patient's hypertension is well-controlled. The plan is to continue lisinopril 40 mg once daily and monitor blood pressure. 3. Hypercholesterolemia The patient's LDL cholesterol is at goal at 97 mg/dL. The plan is to continue pravastatin to maintain LDL goal of less than 130 mg/dL and triglyceride goal of less than 150 mg/dL. 4. Benign Prostatic Hyperplasia (Bph) Physical exam confirmed an enlarged prostate. The patient reports the condition is stable. The plan is to continue finasteride and for the patient to continue follow-up with urology. 5. Subclinical Hypothyroidism The patient's TSH remains mildly elevated but is considered too low to treat at this time. The plan is to monitor and retest the TSH level in approximately 3 months. 6. Gastroesophageal Reflux Disease (Gerd) The patient's heartburn is well-controlled with medication. The plan is to continue omeprazole 20 mg daily. 7. Cerebellar Atrophy With Dysarthria The patient's dysarthria is stable and not worsening. The plan is for the patient to continue following up with neurology and to continue monitoring. 8. Dehydration Lab results show an elevated GTP-[id number]-[id number] ratio, suggestive of dehydration. The patient has been advised to increase daily water intake. Discussion Notes I reviewed the patient's recent lab results in detail. I noted the blood count was normal, cholesterol was at goal, and blood sugar was normal. I explained that the elevated BUN suggests the patient is dehydrated and advised an increase in water intake. I also discussed the mildly elevated TSH, explaining that while it is being monitored, it is too low to warrant treatment at this time. I recommended we recheck the TSH in about 3 months. I informed the patient that the EUFEMIA revealed an enlarged prostate and that the stool was negative for blood. I clarified that finasteride is the medication for the prostate, while lisinopril is for blood pressure. We discussed health maintenance, confirming that immunizations are up-to-date. I provided anticipatory guidance on staying safe, remaining active, and maintaining a healthy diet. I recommended a follow-up appointment in 6 months for continued monitoring. Patient Instructions - Continue taking your current medications as prescribed, including Lisinopril for blood pressure, Finasteride for your prostate, Pravastatin for cholesterol, and Omeprazole for heartburn. - We will send refills for your medications when you need them. - Please drink more water throughout the day to stay hydrated. - Continue to stay active and exercise regularly. - We will need to recheck your thyroid blood test in about 3 months. - If your trouble with swallowing gets worse, please let me know. - Do not pick at the area on your leg where the skin growth was removed. - Please schedule a follow-up appointment to be seen again in 6 months. Quality Reporting (2019) Depression/Bipolar (159/160/161/177) PHQ-9: Total score: 0 Coding Level of Care Code Medicare Subsequent (G0439) Diagnoses Medicare annual wellness visit, subsequent Z00.00 Impaired glucose tolerance R73.02 Hypercholesterolemia E78.00 Benign essential HTN I10 TSH elevation R79.89 Gastroesophageal reflux disease without esophagitis K21.9 Esophagitis presence: without esophagitis Benign prostatic hyperplasia with urinary frequency N40.1; R35.0 Lower urinary tract symptom detail: urinary frequency Lower urinary tract symptom presence: symptoms present S/P shoulder replacement Z96.619 Cerebellar atrophy G31.9 Additional Codes PHQ-9 - 42765 - PHQ-9 Billing: Yes ([id number])
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
== END 2025-02-15 10:46 | disposition home or self-care (01) ==
LOC: HO.HMCH 10:17
PROVIDERS: PCP Internal Medicine; Visit Provider Internal Medicine
DX: Z00.00 Encounter for general adult medical examination without abnormal findings (principal); R73.02 Impaired glucose tolerance (oral); E78.00 Pure hypercholesterolemia, unspecified; I10 Essential (primary) hypertension; R79.89 Other specified abnormal findings of blood chemistry; K21.9 Gastro-esophageal reflux disease without esophagitis; N40.1 Benign prostatic hyperplasia with lower urinary tract symptoms; R35.0 Frequency of micturition; Z96.619 Presence of unspecified artificial shoulder joint; G31.9 Degenerative disease of nervous system, unspecified

== ENCOUNTER → 2025-02-15 10:16 | Outpatient (BNVA) | payer MEDICARE, SELFPAY | PROVIDERS: PCP Internal Medicine; Visit Provider Internal Medicine | DX: Z13.31 Encounter for screening for depression (principal) | CPT/HCPCS: 96127 ==